=== PATIENT | female | born 1935 | race Caucasian/White ===

== ENCOUNTER 2018-06-20 18:32 | Inpatient (IN) ==
[~2018-06-20 18:32] MED LIST: Phenylephrine/NS 1000 MCG/10ML Syringe IV.PUSH ONE
[2018-06-20] MEDS ORDERED: Sod Chloride 0.9% Inj 1,000 ML IV.SIG ONE ×3 (18:54→20:14)
--- NOTE | 2018-06-20 19:11 | ED ---
HPI General Chief complaint: Altered Mental Status Stated complaint: Low blood sugar Time Seen by Provider: 06/20/18 18:37 History of Present Illness HPI narrative: 82-year-old female here for altered mental status. Patient is unable to give any information and all history is taken from the son at the bedside. Patient has history of alcoholic liver disease, son says she was fine until this afternoon she started feeling weak and not herself, she laid down and put a heat pad on her abdomen and had her son called 911. Patient complained about shortness of breath to her son, no chest pain, no head trauma or loss of consciousness. Patient drinks heavily, last drink was last night. Related Data Home Medications Medication Instructions Recorded Confirmed atenolol 25 mg PO DAILY 06/20/18 06/20/18 escitalopram oxalate 10 mg PO DAILY 06/20/18 06/20/18 esomeprazole magnesium [Nexium] 20 mg PO DAILY 06/20/18 06/20/18 hydrochlorothiazide 25 mg PO DAILY 06/20/18 06/20/18 lactulose 15 g PO TID 06/20/18 06/20/18 losartan 50 mg PO DAILY 06/20/18 06/20/18 magnesium oxide 400 mg PO BID 06/20/18 06/20/18 potassium chloride 20 meq PO DAILY 06/20/18 06/20/18 quetiapine 50 mg PO BID 06/20/18 06/20/18 vit [id number] [B 06/20/18 Complex] Allergies Allergy/AdvReac Type Severity Reaction Status Date / Time penicillin G Allergy Severe UNKNOWN Unverified 06/20/18 19:31 pseudoephedrine Allergy Severe UNKNOWN Unverified 06/20/18 19:31 Sulfa (Sulfonamide Allergy Severe UNKNOWN Unverified 06/20/18 19:31 Antibiotics) Review of Systems Except as stated in HPI: all other systems reviewed are negative PMFSH Social History Social History Smoking Status: Unknown if ever smoked How Often Do You Have a Drink Containing Alcohol: Unable to Obtain Recent Travel in [facility] within the Last 8 Weeks: No Recent Out of Country Travel within the Last 8 Weeks: No Exam Narrative Exam Narrative: GENERAL: Awake oriented to place but not time SKIN: Focused skin assessment warm/dry. HEAD: Atraumatic. Normocephalic. EYES: Scleral icterus bilaterally, pupils equal and round. ENT: No nasal bleeding or discharge. Mucous membranes pink and moist. NECK: Trachea midline. No JVD. CARDIOVASCULAR: Regular rate and rhythm. No murmur appreciated. RESPIRATORY: Decreased breath sounds right lower lung vital, accessory muscle use, low saturation on 3 L nasal cannula. GASTROINTESTINAL: Abdomen soft, non-tender, nondistended. Hepatic and splenic margins not palpable. MUSCULOSKELETAL: No obvious deformities. No clubbing. No cyanosis. No edema. NEUROLOGICAL: Awake and alert. No obvious cranial nerve deficits. Motor grossly within normal limits. Normal speech. PSYCHIATRIC: Appropriate mood and affect; insight and judgment normal. Procedures Hemaprompt Stool Procedural Steps Taken: specimen placed in appropriate test area Hemaprompt Stool Result: positive Course Initial Documented Vital Signs Temperature 97.3 F L 06/20/18 18:34 Pulse Rate 95 H 06/20/18 18:34 Respiratory Rate 24 06/20/18 18:34 Blood Pressure 112/70 06/20/18 18:34 Pulse Oximetry 96 06/20/18 18:34 Last Documented Vital Signs Temperature 94.6 F L 06/21/18 06:10 Pulse Rate 83 06/21/18 06:10 Respiratory Rate 16 06/21/18 06:10 Blood Pressure 96/40 L 06/21/18 06:10 Pulse Oximetry 94 L 06/21/18 06:09 Medical Decision Making [facility] Narrative Medical decision making narrative: 82-year-old female history of alcoholic liver disease here for altered mental status. Hemoccult is positive, patient having low saturation on 3 L nasal cannula, pending ABG and x-ray and labs. pt seen during shift change, pt is critically ill and resuscitation initiated immediately, labs ordered, portable CXR suspecious for free air, will sign out to next shift in critical condition, possible intubation if she didn't improve after initial resuscitation. Lab Data Result diagrams: 06/21/18 04:45 06/21/18 04:45 Lab Results 06/20/18 06/20/18 06/20/18 Range/Units 09:00 09:00 09:00 CBC w Diff Slide review pending WBC 10.6 (4.0-11.0) th/mm3 RBC 3.70 L (4.00-5.30) mil/mm3 Hgb 13.9 (11.6-15.3) gm/dL Hct 40.2 (35.0-46.0) % MCV 108.6 H (80.0-100.0) fL MCH 37.4 H (27.0-34.0) pg MCHC 34.4 (32.0-36.0) % RDW 14.7 (11.6-17.2) % Plt Count 225 (150-450) th/mm3 MPV 8.7 (7.0-11.0) fL Prelim Diff (Auto) Neut % (Auto) 77.1 H (16.0-70.0) % Lymph % (Auto) 14.5 (9.0-44.0) % [place] % (Auto) 8.1 H (0.0-8.0) % Eos % (Auto) 0.2 (0.0-4.0) % Baso % (Auto) 0.1 (0.0-2.0) % Neut # (Auto) 8.2 H (1.8-7.7) th/mm3 Lymph # (Auto) 1.5 (1.0-4.8) th/mm3 [place] # (Auto) 0.9 (0.0-0.9) th/mm3 Eos # (Auto) 0.0 (0.0-0.4) th/mm3 Baso # (Auto) 0.0 (0.0-0.2) th/mm3 WBC Differential Manual diff final Seg Neuts % (Manual) 21 (16-70) % Band Neuts % (Manual) 7 H (0-6) % Lymphocytes % (Manual) 15 (9-44) % Monocytes % (Manual) 9 H (0-8) % Metamyelocytes % (Man) 45 H (0-1) % Myelocytes % (Man) 3 H (0-0) % Abs Neuts (Manual) 8.1 H (1.8-7.7) th/mm3 Differential Comment . Toxic Granulation (None) Toxic Vacuolation Present H (None) Dohle Bodies (None) Platelet Estimate Normal (Normal) Platelet Morphology Normal (Normal) Ovalocytes 1+ H (None) [place] Cells 1+ H (None) PT 24.7 H (9.8-11.6) sec INR 2.4 Ratio APTT 42.7 H (24.3-30.1) sec Puncture Site Patient Temperature O2 Saturation (90-100) % ABG pH (7.380-7.420) ABG pCO2 (38-42) mmHg ABG pO2 (61-120) mmHg ABG HCO3 (22-26) mmol/L ABG O2 Content (12.0-20.0) Vol % ABG Base Excess (-2-2) mmol/L ABG Methemoglobin (0-2) % Agustin Test Hemoglobin (12.0-16.0) G/DL Carboxyhemoglobin (0-4) % O2 Delivery Device Liter Flow L/M Vent Setting Inspired O2 % Critical Value Sodium 127 L (136-145) meq/L Potassium 5.2 H (3.5-5.1) meq/L Chloride 92 L (98-107) meq/L Carbon Dioxide 7.4 L (21.0-32.0) meq/L Anion Gap 28 H (5-15) meq/L BUN 40 H (7-18) mg/dL Creatinine 2.90 H (0.50-1.00) mg/dL Estimated GFR 16 L (>89) mL/min POC Glucose (68-110) mg/dl Random Glucose 94 (74-106) mg/dL Lactic Acid (0.4-2.0) mmol/L Calcium 7.9 L (8.5-10.1) mg/dL Prot Corrected Calcium (8.5-10.1) mg/dL Phosphorus (2.5-4.9) mg/dL Magnesium (1.5-2.5) mg/dL Total Bilirubin 4.0 H (0.2-1.0) mg/dL Direct Bilirubin Indirect Bilirubin AST 1615 H (15-37) U/L ALT 490 H (10-53) U/L Alkaline Phosphatase 101 (45-117) U/L Ammonia (11-32) mcmol/L Total Creatine Kinase 1589 H (26-192) U/L CK-MB (CK-2) 38.1 H (0.5-3.6) ng/mL CK-MB (CK-2) % 2.4 (0.0-4.0) % Troponin I 0.11 H (0.02-0.05) ng/mL Total Protein 5.6 L (6.4-8.2) g/dL Albumin 2.4 L (3.4-5.0) g/dL Urine Color (Yellw/Straw) Urine Clarity (Clear) Urine pH (5.0-8.5) Ur Specific [place] (1.002-1.035) Urine Protein (Neg-Trace) mg/dL Urine Glucose (UA) (Negative) mg/dL Urine Ketones (Negative) mg/dL Urine Occult Blood (Negative) Urine Nitrate (Negative) Urine Bilirubin (Negative) Urine Urobilinogen (Less than 2) mg/dL Ur Leukocyte Esterase (Negative) Urine RBC (0-3) /hpf Urine WBC (0-5) /hpf Urine WBC Clumps (None) Urine Bacteria (None) /hpf Micro UA Comment Urine Culture Comments Nasal Screen MRSA (PCR) (Negative) Urine Opiates Screen (Neg) Ur Barbiturates Screen (Neg) Ur Amphetamines Screen (Neg) U Benzodiazepines Scrn (Neg) Urine Cocaine Screen (Neg) U Cannabinoids Screen (Neg) Serum Alcohol Less than 3 (0-5) mg/dL Blood Type Blood Type Recheck Antibody Screen MTS Gel Crossmatch Blood Bank Comment Bld Prod Order Comment 06/20/18 06/20/18 06/20/18 Range/Units 19:10 19:15 19:15 CBC w Diff WBC (4.0-11.0) th/mm3 RBC (4.00-5.30) mil/mm3 Hgb (11.6-15.3) gm/dL Hct (35.0-46.0) % MCV (80.0-100.0) fL MCH (27.0-34.0) pg MCHC (32.0-36.0) % RDW (11.6-17.2) % Plt Count (150-450) th/mm3 MPV (7.0-11.0) fL Prelim Diff (Auto) Neut % (Auto) (16.0-70.0) % Lymph % (Auto) (9.0-44.0) % [place] % (Auto) (0.0-8.0) % Eos % (Auto) (0.0-4.0) % Baso % (Auto) (0.0-2.0) % Neut # (Auto) (1.8-7.7) th/mm3 Lymph # (Auto) (1.0-4.8) th/mm3 [place] # (Auto) (0.0-0.9) th/mm3 Eos # (Auto) (0.0-0.4) th/mm3 Baso # (Auto) (0.0-0.2) th/mm3 WBC Differential Seg Neuts % (Manual) (16-70) % Band Neuts % (Manual) (0-6) % Lymphocytes % (Manual) (9-44) % Monocytes % (Manual) (0-8) % Metamyelocytes % (Man) (0-1) % Myelocytes % (Man) (0-0) % Abs Neuts (Manual) (1.8-7.7) th/mm3 Differential Comment Toxic Granulation (None) Toxic Vacuolation (None) Dohle Bodies (None) Platelet Estimate (Normal) Platelet Morphology (Normal) Ovalocytes (None) [place] Cells (None) PT (9.8-11.6) sec INR Ratio APTT (24.3-30.1) sec Puncture Site Left brachial Patient Temperature 98.6 O2 Saturation 95 (90-100) % ABG pH 6.96 L* (7.380-7.420) ABG pCO2 18 L* (38-42) mmHg ABG pO2 132 H (61-120) mmHg ABG HCO3 4 L* (22-26) mmol/L ABG O2 Content 18.5 (12.0-20.0) Vol % ABG Base Excess -25.7 L (-2-2) mmol/L ABG Methemoglobin 1.4 (0-2) % Agustin Test Y Hemoglobin 13.7 (12.0-16.0) G/DL Carboxyhemoglobin 0.3 (0-4) % O2 Delivery Device Nasal cannula Liter Flow 3.00 L/M Vent Setting Inspired O2 21 % Critical Value Yes Sodium (136-145) meq/L Potassium (3.5-5.1) meq/L Chloride (98-107) meq/L Carbon Dioxide (21.0-32.0) meq/L Anion Gap (5-15) meq/L BUN (7-18) mg/dL Creatinine (0.50-1.00) mg/dL Estimated GFR (>89) mL/min POC Glucose (68-110) mg/dl Random Glucose (74-106) mg/dL Lactic Acid 16.4 H* (0.4-2.0) mmol/L Calcium (8.5-10.1) mg/dL Prot Corrected Calcium (8.5-10.1) mg/dL Phosphorus (2.5-4.9) mg/dL Magnesium (1.5-2.5) mg/dL Total Bilirubin (0.2-1.0) mg/dL Direct Bilirubin Indirect Bilirubin AST (15-37) U/L ALT (10-53) U/L Alkaline Phosphatase (45-117) U/L Ammonia 61 H (11-32) mcmol/L Total Creatine Kinase (26-192) U/L CK-MB (CK-2) (0.5-3.6) ng/mL CK-MB (CK-2) % (0.0-4.0) % Troponin I (0.02-0.05) ng/mL Total Protein (6.4-8.2) g/dL Albumin (3.4-5.0) g/dL Urine Color (Yellw/Straw) Urine Clarity (Clear) Urine pH (5.0-8.5) Ur Specific [place] (1.002-1.035) Urine Protein (Neg-Trace) mg/dL Urine Glucose (UA) (Negative) mg/dL Urine Ketones (Negative) mg/dL Urine Occult Blood (Negative) Urine Nitrate (Negative) Urine Bilirubin (Negative) Urine Urobilinogen (Less than 2) mg/dL Ur Leukocyte Esterase (Negative) Urine RBC (0-3) /hpf Urine WBC (0-5) /hpf Urine WBC Clumps (None) Urine Bacteria (None) /hpf Micro UA Comment Urine Culture Comments Nasal Screen MRSA (PCR) (Negative) Urine Opiates Screen (Neg) Ur Barbiturates Screen (Neg) Ur Amphetamines Screen (Neg) U Benzodiazepines Scrn (Neg) Urine Cocaine Screen (Neg) U Cannabinoids Screen (Neg) Serum Alcohol (0-5) mg/dL Blood Type Blood Type Recheck Antibody Screen MTS Gel Crossmatch Blood Bank Comment Bld Prod Order Comment 06/20/18 06/20/18 06/20/18 Range/Units 20:15 20:15 22:45 CBC w Diff WBC (4.0-11.0) th/mm3 RBC (4.00-5.30) mil/mm3 Hgb (11.6-15.3) gm/dL Hct (35.0-46.0) % MCV (80.0-100.0) fL MCH (27.0-34.0) pg MCHC (32.0-36.0) % RDW (11.6-17.2) % Plt Count (150-450) th/mm3 MPV (7.0-11.0) fL Prelim Diff (Auto) Neut % (Auto) (16.0-70.0) % Lymph % (Auto) (9.0-44.0) % [place] % (Auto) (0.0-8.0) % Eos % (Auto) (0.0-4.0) % Baso % (Auto) (0.0-2.0) % Neut # (Auto) (1.8-7.7) th/mm3 Lymph # (Auto) (1.0-4.8) th/mm3 [place] # (Auto) (0.0-0.9) th/mm3 Eos # (Auto) (0.0-0.4) th/mm3 Baso # (Auto) (0.0-0.2) th/mm3 WBC Differential Seg Neuts % (Manual) (16-70) % Band Neuts % (Manual) (0-6) % Lymphocytes % (Manual) (9-44) % Monocytes % (Manual) (0-8) % Metamyelocytes % (Man) (0-1) % Myelocytes % (Man) (0-0) % Abs Neuts (Manual) (1.8-7.7) th/mm3 Differential Comment Toxic Granulation (None) Toxic Vacuolation (None) Dohle Bodies (None) Platelet Estimate (Normal) Platelet Morphology (Normal) Ovalocytes (None) [place] Cells (None) PT (9.8-11.6) sec INR Ratio APTT (24.3-30.1) sec Puncture Site Art line Patient Temperature 98.6 O2 Saturation 98 (90-100) % ABG pH 7.09 L* (7.380-7.420) ABG pCO2 30 L (38-42) mmHg ABG pO2 472 H (61-120) mmHg ABG HCO3 9 L* (22-26) mmol/L ABG O2 Content 16.4 (12.0-20.0) Vol % ABG Base Excess -19.2 L (-2-2) mmol/L ABG Methemoglobin 1.3 (0-2) % Agustin Test Hemoglobin 11.0 L (12.0-16.0) G/DL Carboxyhemoglobin 0.1 (0-4) % O2 Delivery Device Ventilator Liter Flow L/M Vent Setting Or gas Inspired O2 100 % Critical Value Yes Sodium (136-145) meq/L Potassium (3.5-5.1) meq/L Chloride (98-107) meq/L Carbon Dioxide (21.0-32.0) meq/L Anion Gap (5-15) meq/L BUN (7-18) mg/dL Creatinine (0.50-1.00) mg/dL Estimated GFR (>89) mL/min POC Glucose (68-110) mg/dl Random Glucose (74-106) mg/dL Lactic Acid (0.4-2.0) mmol/L Calcium (8.5-10.1) mg/dL Prot Corrected Calcium (8.5-10.1) mg/dL Phosphorus (2.5-4.9) mg/dL Magnesium (1.5-2.5) mg/dL Total Bilirubin (0.2-1.0) mg/dL Direct Bilirubin Indirect Bilirubin AST (15-37) U/L ALT (10-53) U/L Alkaline Phosphatase (45-117) U/L Ammonia (11-32) mcmol/L Total Creatine Kinase (26-192) U/L CK-MB (CK-2) (0.5-3.6) ng/mL CK-MB (CK-2) % (0.0-4.0) % Troponin I (0.02-0.05) ng/mL Total Protein (6.4-8.2) g/dL Albumin (3.4-5.0) g/dL Urine Color Yellow (Yellw/Straw) Urine Clarity Clear (Clear) Urine pH 5.5 (5.0-8.5) Ur Specific [place] 1.010 (1.002-1.035) Urine Protein Negative (Neg-Trace) mg/dL Urine Glucose (UA) Negative (Negative) mg/dL Urine Ketones Trace H (Negative) mg/dL Urine Occult Blood Moderate H (Negative) Urine Nitrate Negative (Negative) Urine Bilirubin Negative (Negative) Urine Urobilinogen 0.2 (Less than 2) mg/dL Ur Leukocyte Esterase Moderate H (Negative) Urine RBC 4-15 H (0-3) /hpf Urine WBC 9-20 H (0-5) /hpf Urine WBC Clumps Few H (None) Urine Bacteria Moderate H (None) /hpf Micro UA Comment Cath-culture ind Urine Culture Comments Cath-cult indicated Nasal Screen MRSA (PCR) (Negative) Urine Opiates Screen Neg (Neg) Ur Barbiturates Screen Neg (Neg) Ur Amphetamines Screen Neg (Neg) U Benzodiazepines Scrn Neg (Neg) Urine Cocaine Screen Neg (Neg) U Cannabinoids Screen Neg (Neg) Serum Alcohol (0-5) mg/dL Blood Type Blood Type Recheck Antibody Screen MTS Gel Crossmatch Blood Bank Comment Bld Prod Order Comment 06/21/18 06/21/18 06/21/18 Range/Units 00:12 00:12 00:15 CBC w Diff WBC 6.8 (4.0-11.0) th/mm3 RBC 2.30 L (4.00-5.30) mil/mm3 Hgb 8.6 L D (11.6-15.3) gm/dL Hct 24.8 L (35.0-46.0) % MCV 108.0 H (80.0-100.0) fL MCH 37.3 H (27.0-34.0) pg MCHC 34.6 (32.0-36.0) % RDW 14.1 (11.6-17.2) % Plt Count 130 L D (150-450) th/mm3 MPV 8.5 (7.0-11.0) fL Prelim Diff (Auto) Neut % (Auto) (16.0-70.0) % Lymph % (Auto) (9.0-44.0) % [place] % (Auto) (0.0-8.0) % Eos % (Auto) (0.0-4.0) % Baso % (Auto) (0.0-2.0) % Neut # (Auto) (1.8-7.7) th/mm3 Lymph # (Auto) (1.0-4.8) th/mm3 [place] # (Auto) (0.0-0.9) th/mm3 Eos # (Auto) (0.0-0.4) th/mm3 Baso # (Auto) (0.0-0.2) th/mm3 WBC Differential Seg Neuts % (Manual) (16-70) % Band Neuts % (Manual) (0-6) % Lymphocytes % (Manual) (9-44) % Monocytes % (Manual) (0-8) % Metamyelocytes % (Man) (0-1) % Myelocytes % (Man) (0-0) % Abs Neuts (Manual) (1.8-7.7) th/mm3 Differential Comment Toxic Granulation (None) Toxic Vacuolation (None) Dohle Bodies (None) Platelet Estimate (Normal) Platelet Morphology (Normal) Ovalocytes (None) [place] Cells (None) PT (9.8-11.6) sec INR Ratio APTT (24.3-30.1) sec Puncture Site Patient Temperature O2 Saturation (90-100) % ABG pH (7.380-7.420) ABG pCO2 (38-42) mmHg ABG pO2 (61-120) mmHg ABG HCO3 (22-26) mmol/L ABG O2 Content (12.0-20.0) Vol % ABG Base Excess (-2-2) mmol/L ABG Methemoglobin (0-2) % Agustin Test Hemoglobin (12.0-16.0) G/DL Carboxyhemoglobin (0-4) % O2 Delivery Device Liter Flow L/M Vent Setting Inspired O2 % Critical Value Sodium Cancelled (136-145) meq/L Potassium Cancelled (3.5-5.1) meq/L Chloride Cancelled (98-107) meq/L Carbon Dioxide Cancelled (21.0-32.0) meq/L Anion Gap Cancelled (5-15) meq/L BUN Cancelled (7-18) mg/dL Creatinine Cancelled (0.50-1.00) mg/dL Estimated GFR Cancelled (>89) mL/min POC Glucose (68-110) mg/dl Random Glucose Cancelled (74-106) mg/dL Lactic Acid (0.4-2.0) mmol/L Calcium Cancelled (8.5-10.1) mg/dL Prot Corrected Calcium (8.5-10.1) mg/dL Phosphorus (2.5-4.9) mg/dL Magnesium (1.5-2.5) mg/dL Total Bilirubin Cancelled (0.2-1.0) mg/dL Direct Bilirubin Cancelled Indirect Bilirubin Cancelled AST Cancelled (15-37) U/L ALT Cancelled (10-53) U/L Alkaline Phosphatase Cancelled (45-117) U/L Ammonia (11-32) mcmol/L Total Creatine Kinase Cancelled (26-192) U/L CK-MB (CK-2) (0.5-3.6) ng/mL CK-MB (CK-2) % (0.0-4.0) % Troponin I (0.02-0.05) ng/mL Total Protein Cancelled (6.4-8.2) g/dL Albumin Cancelled (3.4-5.0) g/dL Urine Color (Yellw/Straw) Urine Clarity (Clear) Urine pH (5.0-8.5) Ur Specific [place] (1.002-1.035) Urine Protein (Neg-Trace) mg/dL Urine Glucose (UA) (Negative) mg/dL Urine Ketones (Negative) mg/dL Urine Occult Blood (Negative) Urine Nitrate (Negative) Urine Bilirubin (Negative) Urine Urobilinogen (Less than 2) mg/dL Ur Leukocyte Esterase (Negative) Urine RBC (0-3) /hpf Urine WBC (0-5) /hpf Urine WBC Clumps (None) Urine Bacteria (None) /hpf Micro UA Comment Urine Culture Comments Nasal Screen MRSA (PCR) [place] detected (Negative) Urine Opiates Screen (Neg) Ur Barbiturates Screen (Neg) Ur Amphetamines Screen (Neg) U Benzodiazepines Scrn (Neg) Urine Cocaine Screen (Neg) U Cannabinoids Screen (Neg) Serum Alcohol (0-5) mg/dL Blood Type Blood Type Recheck Antibody Screen MTS Gel Crossmatch Blood Bank Comment Bld Prod Order Comment 06/21/18 06/21/18 06/21/18 Range/Units 00:30 00:30 00:30 CBC w Diff WBC (4.0-11.0) th/mm3 RBC (4.00-5.30) mil/mm3 Hgb (11.6-15.3) gm/dL Hct (35.0-46.0) % MCV (80.0-100.0) fL MCH (27.0-34.0) pg MCHC (32.0-36.0) % RDW (11.6-17.2) % Plt Count (150-450) th/mm3 MPV (7.0-11.0) fL Prelim Diff (Auto) Neut % (Auto) (16.0-70.0) % Lymph % (Auto) (9.0-44.0) % [place] % (Auto) (0.0-8.0) % Eos % (Auto) (0.0-4.0) % Baso % (Auto) (0.0-2.0) % Neut # (Auto) (1.8-7.7) th/mm3 Lymph # (Auto) (1.0-4.8) th/mm3 [place] # (Auto) (0.0-0.9) th/mm3 Eos # (Auto) (0.0-0.4) th/mm3 Baso # (Auto) (0.0-0.2) th/mm3 WBC Differential Seg Neuts % (Manual) (16-70) % Band Neuts % (Manual) (0-6) % Lymphocytes % (Manual) (9-44) % Monocytes % (Manual) (0-8) % Metamyelocytes % (Man) (0-1) % Myelocytes % (Man) (0-0) % Abs Neuts (Manual) (1.8-7.7) th/mm3 Differential Comment Toxic Granulation (None) Toxic Vacuolation (None) Dohle Bodies (None) Platelet Estimate (Normal) Platelet Morphology (Normal) Ovalocytes (None) [place] Cells (None) PT (9.8-11.6) sec INR Ratio APTT (24.3-30.1) sec Puncture Site Art line Patient Temperature 98.6 O2 Saturation 98 (90-100) % ABG pH 7.40 (7.380-7.420) ABG pCO2 17 L* (38-42) mmHg ABG pO2 472 H (61-120) mmHg ABG HCO3 10 L* (22-26) mmol/L ABG O2 Content 12.6 (12.0-20.0) Vol % ABG Base Excess -14.0 L (-2-2) mmol/L ABG Methemoglobin 1.0 (0-2) % Agustin Test Hemoglobin 8.2 L (12.0-16.0) G/DL Carboxyhemoglobin 0.9 (0-4) % O2 Delivery Device Ventilator Liter Flow L/M Vent Setting 20/500/it1.0 Inspired O2 100 % Critical Value Yes Sodium (136-145) meq/L Potassium (3.5-5.1) meq/L Chloride (98-107) meq/L Carbon Dioxide (21.0-32.0) meq/L Anion Gap (5-15) meq/L BUN (7-18) mg/dL Creatinine (0.50-1.00) mg/dL Estimated GFR (>89) mL/min POC Glucose (68-110) mg/dl Random Glucose (74-106) mg/dL Lactic Acid 14.9 H* (0.4-2.0) mmol/L Calcium (8.5-10.1) mg/dL Prot Corrected Calcium (8.5-10.1) mg/dL Phosphorus (2.5-4.9) mg/dL Magnesium (1.5-2.5) mg/dL Total Bilirubin (0.2-1.0) mg/dL Direct Bilirubin Indirect Bilirubin AST (15-37) U/L ALT (10-53) U/L Alkaline Phosphatase (45-117) U/L Ammonia (11-32) mcmol/L Total Creatine Kinase (26-192) U/L CK-MB (CK-2) (0.5-3.6) ng/mL CK-MB (CK-2) % (0.0-4.0) % Troponin I (0.02-0.05) ng/mL Total Protein (6.4-8.2) g/dL Albumin (3.4-5.0) g/dL Urine Color (Yellw/Straw) Urine Clarity (Clear) Urine pH (5.0-8.5) Ur Specific [place] (1.002-1.035) Urine Protein (Neg-Trace) mg/dL Urine Glucose (UA) (Negative) mg/dL Urine Ketones (Negative) mg/dL Urine Occult Blood (Negative) Urine Nitrate (Negative) Urine Bilirubin (Negative) Urine Urobilinogen (Less than 2) mg/dL Ur Leukocyte Esterase (Negative) Urine RBC (0-3) /hpf Urine WBC (0-5) /hpf Urine WBC Clumps (None) Urine Bacteria (None) /hpf Micro UA Comment Urine Culture Comments Nasal Screen MRSA (PCR) (Negative) Urine Opiates Screen (Neg) Ur Barbiturates Screen (Neg) Ur Amphetamines Screen (Neg) U Benzodiazepines Scrn (Neg) Urine Cocaine Screen (Neg) U Cannabinoids Screen (Neg) Serum Alcohol (0-5) mg/dL Blood Type B Positive Blood Type Recheck Antibody Screen Negative MTS Gel Crossmatch Blood Bank Comment Bld Prod Order Comment 06/21/18 06/21/18 06/21/18 Range/Units 01:33 01:50 02:26 CBC w Diff WBC (4.0-11.0) th/mm3 RBC (4.00-5.30) mil/mm3 Hgb (11.6-15.3) gm/dL Hct (35.0-46.0) % MCV (80.0-100.0) fL MCH (27.0-34.0) pg MCHC (32.0-36.0) % RDW (11.6-17.2) % Plt Count (150-450) th/mm3 MPV (7.0-11.0) fL Prelim Diff (Auto) Neut % (Auto) (16.0-70.0) % Lymph % (Auto) (9.0-44.0) % [place] % (Auto) (0.0-8.0) % Eos % (Auto) (0.0-4.0) % Baso % (Auto) (0.0-2.0) % Neut # (Auto) (1.8-7.7) th/mm3 Lymph # (Auto) (1.0-4.8) th/mm3 [place] # (Auto) (0.0-0.9) th/mm3 Eos # (Auto) (0.0-0.4) th/mm3 Baso # (Auto) (0.0-0.2) th/mm3 WBC Differential Seg Neuts % (Manual) (16-70) % Band Neuts % (Manual) (0-6) % Lymphocytes % (Manual) (9-44) % Monocytes % (Manual) (0-8) % Metamyelocytes % (Man) (0-1) % Myelocytes % (Man) (0-0) % Abs Neuts (Manual) (1.8-7.7) th/mm3 Differential Comment Toxic Granulation (None) Toxic Vacuolation (None) Dohle Bodies (None) Platelet Estimate (Normal) Platelet Morphology (Normal) Ovalocytes (None) [place] Cells (None) PT (9.8-11.6) sec INR Ratio APTT (24.3-30.1) sec Puncture Site Patient Temperature O2 Saturation (90-100) % ABG pH (7.380-7.420) ABG pCO2 (38-42) mmHg ABG pO2 (61-120) mmHg ABG HCO3 (22-26) mmol/L ABG O2 Content (12.0-20.0) Vol % ABG Base Excess (-2-2) mmol/L ABG Methemoglobin (0-2) % [place] Test Hemoglobin (12.0-16.0) G/DL Carboxyhemoglobin (0-4) % O2 Delivery Device Liter Flow L/M Vent Setting Inspired O2 % Critical Value Sodium (136-145) meq/L Potassium (3.5-5.1) meq/L Chloride (98-107) meq/L Carbon Dioxide (21.0-32.0) meq/L Anion Gap (5-15) meq/L BUN (7-18) mg/dL Creatinine (0.50-1.00) mg/dL Estimated GFR (>89) mL/min POC Glucose 38 L* 479 H* 295 H (68-110) mg/dl Random Glucose (74-106) mg/dL Lactic Acid (0.4-2.0) mmol/L Calcium (8.5-10.1) mg/dL Prot Corrected Calcium (8.5-10.1) mg/dL Phosphorus (2.5-4.9) mg/dL Magnesium (1.5-2.5) mg/dL Total Bilirubin (0.2-1.0) mg/dL Direct Bilirubin Indirect Bilirubin AST (15-37) U/L ALT (10-53) U/L Alkaline Phosphatase (45-117) U/L Ammonia (11-32) mcmol/L Total Creatine Kinase (26-192) U/L CK-MB (CK-2) (0.5-3.6) ng/mL CK-MB (CK-2) % (0.0-4.0) % Troponin I (0.02-0.05) ng/mL Total Protein (6.4-8.2) g/dL Albumin (3.4-5.0) g/dL Urine Color (Yellw/Straw) Urine Clarity (Clear) Urine pH (5.0-8.5) Ur Specific [place] (1.002-1.035) Urine Protein (Neg-Trace) mg/dL Urine Glucose (UA) (Negative) mg/dL Urine Ketones (Negative) mg/dL Urine Occult Blood (Negative) Urine Nitrate (Negative) Urine Bilirubin (Negative) Urine Urobilinogen (Less than 2) mg/dL Ur Leukocyte Esterase (Negative) Urine RBC (0-3) /hpf Urine WBC (0-5) /hpf Urine WBC Clumps (None) Urine Bacteria (None) /hpf Micro UA Comment Urine Culture Comments Nasal Screen MRSA (PCR) (Negative) Urine Opiates Screen (Neg) Ur Barbiturates Screen (Neg) Ur Amphetamines Screen (Neg) U Benzodiazepines Scrn (Neg) Urine Cocaine Screen (Neg) U Cannabinoids Screen (Neg) Serum Alcohol (0-5) mg/dL Blood Type Blood Type Recheck Antibody Screen MTS Gel Crossmatch Blood Bank Comment Bld Prod Order Comment 06/21/18 06/21/18 06/21/18 Range/Units 03:05 03:05 03:25 CBC w Diff WBC (4.0-11.0) th/mm3 RBC (4.00-5.30) mil/mm3 Hgb 5.6 L* D (11.6-15.3) gm/dL Hct 17.1 L* (35.0-46.0) % MCV (80.0-100.0) fL MCH (27.0-34.0) pg MCHC (32.0-36.0) % RDW (11.6-17.2) % Plt Count (150-450) th/mm3 MPV (7.0-11.0) fL Prelim Diff (Auto) Neut % (Auto) (16.0-70.0) % Lymph % (Auto) (9.0-44.0) % [place] % (Auto) (0.0-8.0) % Eos % (Auto) (0.0-4.0) % Baso % (Auto) (0.0-2.0) % Neut # (Auto) (1.8-7.7) th/mm3 Lymph # (Auto) (1.0-4.8) th/mm3 [place] # (Auto) (0.0-0.9) th/mm3 Eos # (Auto) (0.0-0.4) th/mm3 Baso # (Auto) (0.0-0.2) th/mm3 WBC Differential Seg Neuts % (Manual) (16-70) % Band Neuts % (Manual) (0-6) % Lymphocytes % (Manual) (9-44) % Monocytes % (Manual) (0-8) % Metamyelocytes % (Man) (0-1) % Myelocytes % (Man) (0-0) % Abs Neuts (Manual) (1.8-7.7) th/mm3 Differential Comment Toxic Granulation (None) Toxic Vacuolation (None) Dohle Bodies (None) Platelet Estimate (Normal) Platelet Morphology (Normal) Ovalocytes (None) Rafiq Cells (None) PT (9.8-11.6) sec INR Ratio APTT (24.3-30.1) sec Puncture Site Patient Temperature O2 Saturation (90-100) % ABG pH (7.380-7.420) ABG pCO2 (38-42) mmHg ABG pO2 (61-120) mmHg ABG HCO3 (22-26) mmol/L ABG O2 Content (12.0-20.0) Vol % ABG Base Excess (-2-2) mmol/L ABG Methemoglobin (0-2) % Agustin Test Hemoglobin (12.0-16.0) G/DL Carboxyhemoglobin (0-4) % O2 Delivery Device Liter Flow L/M Vent Setting Inspired O2 % Critical Value Sodium (136-145) meq/L Potassium (3.5-5.1) meq/L Chloride (98-107) meq/L Carbon Dioxide (21.0-32.0) meq/L Anion Gap (5-15) meq/L BUN (7-18) mg/dL Creatinine (0.50-1.00) mg/dL Estimated GFR (>89) mL/min POC Glucose (68-110) mg/dl Random Glucose (74-106) mg/dL Lactic Acid (0.4-2.0) mmol/L Calcium (8.5-10.1) mg/dL Prot Corrected Calcium (8.5-10.1) mg/dL Phosphorus (2.5-4.9) mg/dL Magnesium (1.5-2.5) mg/dL Total Bilirubin (0.2-1.0) mg/dL Direct Bilirubin Indirect Bilirubin AST (15-37) U/L ALT (10-53) U/L Alkaline Phosphatase (45-117) U/L Ammonia (11-32) mcmol/L Total Creatine Kinase (26-192) U/L CK-MB (CK-2) (0.5-3.6) ng/mL CK-MB (CK-2) % (0.0-4.0) % Troponin I (0.02-0.05) ng/mL Total Protein (6.4-8.2) g/dL Albumin (3.4-5.0) g/dL Urine Color (Yellw/Straw) Urine Clarity (Clear) Urine pH (5.0-8.5) Ur Specific [place] (1.002-1.035) Urine Protein (Neg-Trace) mg/dL Urine Glucose (UA) (Negative) mg/dL Urine Ketones (Negative) mg/dL Urine Occult Blood (Negative) Urine Nitrate (Negative) Urine Bilirubin (Negative) Urine Urobilinogen (Less than 2) mg/dL Ur Leukocyte Esterase (Negative) Urine RBC (0-3) /hpf Urine WBC (0-5) /hpf Urine WBC Clumps (None) Urine Bacteria (None) /hpf Micro UA Comment Urine Culture Comments Nasal Screen MRSA (PCR) (Negative) Urine Opiates Screen (Neg) Ur Barbiturates Screen (Neg) Ur Amphetamines Screen (Neg) U Benzodiazepines Scrn (Neg) Urine Cocaine Screen (Neg) U Cannabinoids Screen (Neg) Serum Alcohol (0-5) mg/dL Blood Type Blood Type Recheck Antibody Screen MTS Gel Crossmatch See Detail See Detail Blood Bank Comment Bld Prod Order Comment 06/21/18 06/21/18 06/21/18 Range/Units 04:34 04:34 04:45 CBC w Diff WBC 4.6 (4.0-11.0) th/mm3 RBC 2.99 L (4.00-5.30) mil/mm3 Hgb 9.2 L D (11.6-15.3) gm/dL Hct 29.0 L (35.0-46.0) % MCV 96.8 D (80.0-100.0) fL MCH 30.9 (27.0-34.0) pg MCHC 31.9 L (32.0-36.0) % RDW 17.5 H D (11.6-17.2) % Plt Count 43 L D (150-450) th/mm3 MPV 8.7 (7.0-11.0) fL Prelim Diff (Auto) Manual diff required Neut % (Auto) (16.0-70.0) % Lymph % (Auto) (9.0-44.0) % [place] % (Auto) (0.0-8.0) % Eos % (Auto) (0.0-4.0) % Baso % (Auto) (0.0-2.0) % Neut # (Auto) (1.8-7.7) th/mm3 Lymph # (Auto) (1.0-4.8) th/mm3 [place] # (Auto) (0.0-0.9) th/mm3 Eos # (Auto) (0.0-0.4) th/mm3 Baso # (Auto) (0.0-0.2) th/mm3 WBC Differential Manual diff final Seg Neuts % (Manual) 56 (16-70) % Band Neuts % (Manual) 37 H (0-6) % Lymphocytes % (Manual) 3 L (9-44) % Monocytes % (Manual) (0-8) % Metamyelocytes % (Man) 4 H (0-1) % Myelocytes % (Man) (0-0) % Abs Neuts (Manual) 4.5 (1.8-7.7) th/mm3 Differential Comment . Toxic Granulation 1+ H (None) Toxic Vacuolation Present H (None) Dohle Bodies Present H (None) Platelet Estimate Low L (Normal) Platelet Morphology Normal (Normal) Ovalocytes (None) [place] Cells 1+ H (None) PT (9.8-11.6) sec INR Ratio APTT (24.3-30.1) sec Puncture Site Patient Temperature O2 Saturation (90-100) % ABG pH (7.380-7.420) ABG pCO2 (38-42) mmHg ABG pO2 (61-120) mmHg ABG HCO3 (22-26) mmol/L ABG O2 Content (12.0-20.0) Vol % ABG Base Excess (-2-2) mmol/L ABG Methemoglobin (0-2) % Agustin Test Hemoglobin (12.0-16.0) G/DL Carboxyhemoglobin (0-4) % O2 Delivery Device Liter Flow L/M Vent Setting Inspired O2 % Critical Value Sodium (136-145) meq/L Potassium (3.5-5.1) meq/L Chloride (98-107) meq/L Carbon Dioxide (21.0-32.0) meq/L Anion Gap (5-15) meq/L BUN (7-18) mg/dL Creatinine (0.50-1.00) mg/dL Estimated GFR (>89) mL/min POC Glucose (68-110) mg/dl Random Glucose (74-106) mg/dL Lactic Acid (0.4-2.0) mmol/L Calcium (8.5-10.1) mg/dL Prot Corrected Calcium (8.5-10.1) mg/dL Phosphorus (2.5-4.9) mg/dL Magnesium (1.5-2.5) mg/dL Total Bilirubin (0.2-1.0) mg/dL Direct Bilirubin Indirect Bilirubin AST (15-37) U/L ALT (10-53) U/L Alkaline Phosphatase (45-117) U/L Ammonia (11-32) mcmol/L Total Creatine Kinase (26-192) U/L CK-MB (CK-2) (0.5-3.6) ng/mL CK-MB (CK-2) % (0.0-4.0) % Troponin I (0.02-0.05) ng/mL Total Protein (6.4-8.2) g/dL Albumin (3.4-5.0) g/dL Urine Color (Yellw/Straw) Urine Clarity (Clear) Urine pH (5.0-8.5) Ur Specific [place] (1.002-1.035) Urine Protein (Neg-Trace) mg/dL Urine Glucose (UA) (Negative) mg/dL Urine Ketones (Negative) mg/dL Urine Occult Blood (Negative) Urine Nitrate (Negative) Urine Bilirubin (Negative) Urine Urobilinogen (Less than 2) mg/dL Ur Leukocyte Esterase (Negative) Urine RBC (0-3) /hpf Urine WBC (0-5) /hpf Urine WBC Clumps (None) Urine Bacteria (None) /hpf Micro UA Comment Urine Culture Comments Nasal Screen MRSA (PCR) (Negative) Urine Opiates Screen (Neg) Ur Barbiturates Screen (Neg) Ur Amphetamines Screen (Neg) U Benzodiazepines Scrn (Neg) Urine Cocaine Screen (Neg) U Cannabinoids Screen (Neg) Serum Alcohol (0-5) mg/dL Blood Type Blood Type Recheck Antibody Screen MTS Gel Crossmatch See Detail Blood Bank Comment Bld Prod Order Comment 06/21/18 06/21/18 06/21/18 Range/Units 04:45 04:45 04:45 CBC w Diff WBC (4.0-11.0) th/mm3 RBC (4.00-5.30) mil/mm3 Hgb (11.6-15.3) gm/dL Hct (35.0-46.0) % MCV (80.0-100.0) fL MCH (27.0-34.0) pg MCHC (32.0-36.0) % RDW (11.6-17.2) % Plt Count (150-450) th/mm3 MPV (7.0-11.0) fL Prelim Diff (Auto) Neut % (Auto) (16.0-70.0) % Lymph % (Auto) (9.0-44.0) % [place] % (Auto) (0.0-8.0) % Eos % (Auto) (0.0-4.0) % Baso % (Auto) (0.0-2.0) % Neut # (Auto) (1.8-7.7) th/mm3 Lymph # (Auto) (1.0-4.8) th/mm3 [place] # (Auto) (0.0-0.9) th/mm3 Eos # (Auto) (0.0-0.4) th/mm3 Baso # (Auto) (0.0-0.2) th/mm3 WBC Differential Seg Neuts % (Manual) (16-70) % Band Neuts % (Manual) (0-6) % Lymphocytes % (Manual) (9-44) % Monocytes % (Manual) (0-8) % Metamyelocytes % (Man) (0-1) % Myelocytes % (Man) (0-0) % Abs Neuts (Manual) (1.8-7.7) th/mm3 Differential Comment Toxic Granulation (None) Toxic Vacuolation (None) Dohle Bodies (None) Platelet Estimate (Normal) Platelet Morphology (Normal) Ovalocytes (None) [place] Cells (None) PT 44.8 H D (9.8-11.6) sec INR 4.5 Ratio APTT 180.9 H* D (24.3-30.1) sec Puncture Site Patient Temperature O2 Saturation (90-100) % ABG pH (7.380-7.420) ABG pCO2 (38-42) mmHg ABG pO2 (61-120) mmHg ABG HCO3 (22-26) mmol/L ABG O2 Content (12.0-20.0) Vol % ABG Base Excess (-2-2) mmol/L ABG Methemoglobin (0-2) % Agustin Test Hemoglobin (12.0-16.0) G/DL Carboxyhemoglobin (0-4) % O2 Delivery Device Liter Flow L/M Vent Setting Inspired O2 % Critical Value Sodium 143 D (136-145) meq/L Potassium 5.6 H (3.5-5.1) meq/L Chloride 111 H D (98-107) meq/L Carbon Dioxide 7.5 L (21.0-32.0) meq/L Anion Gap 25 H (5-15) meq/L BUN 29 H (7-18) mg/dL Creatinine 1.89 H (0.50-1.00) mg/dL Estimated GFR 26 L (>89) mL/min POC Glucose (68-110) mg/dl Random Glucose 202 H D (74-106) mg/dL Lactic Acid 15.8 H* (0.4-2.0) mmol/L Calcium Less than 5.0 L* D (8.5-10.1) mg/dL Prot Corrected Calcium 7.8 L (8.5-10.1) mg/dL Phosphorus 9.7 H (2.5-4.9) mg/dL Magnesium 1.5 (1.5-2.5) mg/dL Total Bilirubin 1.2 H (0.2-1.0) mg/dL Direct Bilirubin Indirect Bilirubin AST 3722 H (15-37) U/L ALT 694 H (10-53) U/L Alkaline Phosphatase 31 L (45-117) U/L Ammonia (11-32) mcmol/L Total Creatine Kinase 1876 H (26-192) U/L CK-MB (CK-2) 43.0 H (0.5-3.6) ng/mL CK-MB (CK-2) % 2.3 (0.0-4.0) % Troponin I (0.02-0.05) ng/mL Total Protein 1.4 L D (6.4-8.2) g/dL Albumin 0.6 L D (3.4-5.0) g/dL Urine Color (Yellw/Straw) Urine Clarity (Clear) Urine pH (5.0-8.5) Ur Specific [place] (1.002-1.035) Urine Protein (Neg-Trace) mg/dL Urine Glucose (UA) (Negative) mg/dL Urine Ketones (Negative) mg/dL Urine Occult Blood (Negative) Urine Nitrate (Negative) Urine Bilirubin (Negative) Urine Urobilinogen (Less than 2) mg/dL Ur Leukocyte Esterase (Negative) Urine RBC (0-3) /hpf Urine WBC (0-5) /hpf Urine WBC Clumps (None) Urine Bacteria (None) /hpf Micro UA Comment Urine Culture Comments Nasal Screen MRSA (PCR) (Negative) Urine Opiates Screen (Neg) Ur Barbiturates Screen (Neg) Ur Amphetamines Screen (Neg) U Benzodiazepines Scrn (Neg) Urine Cocaine Screen (Neg) U Cannabinoids Screen (Neg) Serum Alcohol (0-5) mg/dL Blood Type Blood Type Recheck Antibody Screen MTS Gel Crossmatch Blood Bank Comment Bld Prod Order Comment 06/21/18 06/21/18 06/21/18 Range/Units 05:40 05:56 05:57 CBC w Diff WBC (4.0-11.0) th/mm3 RBC (4.00-5.30) mil/mm3 Hgb (11.6-15.3) gm/dL Hct (35.0-46.0) % MCV (80.0-100.0) fL MCH (27.0-34.0) pg MCHC (32.0-36.0) % RDW (11.6-17.2) % Plt Count (150-450) th/mm3 MPV (7.0-11.0) fL Prelim Diff (Auto) Neut % (Auto) (16.0-70.0) % Lymph % (Auto) (9.0-44.0) % [place] % (Auto) (0.0-8.0) % Eos % (Auto) (0.0-4.0) % Baso % (Auto) (0.0-2.0) % Neut # (Auto) (1.8-7.7) th/mm3 Lymph # (Auto) (1.0-4.8) th/mm3 [place] # (Auto) (0.0-0.9) th/mm3 Eos # (Auto) (0.0-0.4) th/mm3 Baso # (Auto) (0.0-0.2) th/mm3 WBC Differential Seg Neuts % (Manual) (16-70) % Band Neuts % (Manual) (0-6) % Lymphocytes % (Manual) (9-44) % Monocytes % (Manual) (0-8) % Metamyelocytes % (Man) (0-1) % Myelocytes % (Man) (0-0) % Abs Neuts (Manual) (1.8-7.7) th/mm3 Differential Comment Toxic Granulation (None) Toxic Vacuolation (None) Dohle Bodies (None) Platelet Estimate (Normal) Platelet Morphology (Normal) Ovalocytes (None) [place] Cells (None) PT (9.8-11.6) sec INR Ratio APTT (24.3-30.1) sec Puncture Site Art line Patient Temperature 98.6 O2 Saturation 97 (90-100) % ABG pH 7.03 L* (7.380-7.420) ABG pCO2 22 L* (38-42) mmHg ABG pO2 247 H (61-120) mmHg ABG HCO3 6 L* (22-26) mmol/L ABG O2 Content 13.6 (12.0-20.0) Vol % ABG Base Excess -23.2 L (-2-2) mmol/L ABG Methemoglobin 1.2 (0-2) % Agustin Test Hemoglobin 9.5 L (12.0-16.0) G/DL Carboxyhemoglobin 1.0 (0-4) % O2 Delivery Device Ventilator Liter Flow L/M Vent Setting 16/500/1.0/peep 5 Inspired O2 50 % Critical Value Yes Sodium (136-145) meq/L Potassium (3.5-5.1) meq/L Chloride (98-107) meq/L Carbon Dioxide (21.0-32.0) meq/L Anion Gap (5-15) meq/L BUN (7-18) mg/dL Creatinine (0.50-1.00) mg/dL Estimated GFR (>89) mL/min POC Glucose (68-110) mg/dl Random Glucose (74-106) mg/dL Lactic Acid (0.4-2.0) mmol/L Calcium (8.5-10.1) mg/dL Prot Corrected Calcium (8.5-10.1) mg/dL Phosphorus (2.5-4.9) mg/dL Magnesium (1.5-2.5) mg/dL Total Bilirubin (0.2-1.0) mg/dL Direct Bilirubin Indirect Bilirubin AST (15-37) U/L ALT (10-53) U/L Alkaline Phosphatase (45-117) U/L Ammonia (11-32) mcmol/L Total Creatine Kinase (26-192) U/L CK-MB (CK-2) (0.5-3.6) ng/mL CK-MB (CK-2) % (0.0-4.0) % Troponin I (0.02-0.05) ng/mL Total Protein (6.4-8.2) g/dL Albumin (3.4-5.0) g/dL Urine Color (Yellw/Straw) Urine Clarity (Clear) Urine pH (5.0-8.5) Ur Specific [place] (1.002-1.035) Urine Protein (Neg-Trace) mg/dL Urine Glucose (UA) (Negative) mg/dL Urine Ketones (Negative) mg/dL Urine Occult Blood (Negative) Urine Nitrate (Negative) Urine Bilirubin (Negative) Urine Urobilinogen (Less than 2) mg/dL Ur Leukocyte Esterase (Negative) Urine RBC (0-3) /hpf Urine WBC (0-5) /hpf Urine WBC Clumps (None) Urine Bacteria (None) /hpf Micro UA Comment Urine Culture Comments Nasal Screen MRSA (PCR) (Negative) Urine Opiates Screen (Neg) Ur Barbiturates Screen (Neg) Ur Amphetamines Screen (Neg) U Benzodiazepines Scrn (Neg) Urine Cocaine Screen (Neg) U Cannabinoids Screen (Neg) Serum Alcohol (0-5) mg/dL Blood Type Blood Type Recheck Antibody Screen MTS Gel Crossmatch See Detail Blood Bank Comment Bld Prod Order Comment ND ND 06/21/18 Range/Units 06:00 CBC w Diff WBC (4.0-11.0) th/mm3 RBC (4.00-5.30) mil/mm3 Hgb (11.6-15.3) gm/dL Hct (35.0-46.0) % MCV (80.0-100.0) fL MCH (27.0-34.0) pg MCHC (32.0-36.0) % RDW (11.6-17.2) % Plt Count (150-450) th/mm3 MPV (7.0-11.0) fL Prelim Diff (Auto) Neut % (Auto) (16.0-70.0) % Lymph % (Auto) (9.0-44.0) % [place] % (Auto) (0.0-8.0) % Eos % (Auto) (0.0-4.0) % Baso % (Auto) (0.0-2.0) % Neut # (Auto) (1.8-7.7) th/mm3 Lymph # (Auto) (1.0-4.8) th/mm3 [place] # (Auto) (0.0-0.9) th/mm3 Eos # (Auto) (0.0-0.4) th/mm3 Baso # (Auto) (0.0-0.2) th/mm3 WBC Differential Seg Neuts % (Manual) (16-70) % Band Neuts % (Manual) (0-6) % Lymphocytes % (Manual) (9-44) % Monocytes % (Manual) (0-8) % Metamyelocytes % (Man) (0-1) % Myelocytes % (Man) (0-0) % Abs Neuts (Manual) (1.8-7.7) th/mm3 Differential Comment Toxic Granulation (None) Toxic Vacuolation (None) Dohle Bodies (None) Platelet Estimate (Normal) Platelet Morphology (Normal) Ovalocytes (None) Rafiq Cells (None) PT (9.8-11.6) sec INR Ratio APTT (24.3-30.1) sec Puncture Site Patient Temperature O2 Saturation (90-100) % ABG pH (7.380-7.420) ABG pCO2 (38-42) mmHg ABG pO2 (61-120) mmHg ABG HCO3 (22-26) mmol/L ABG O2 Content (12.0-20.0) Vol % ABG Base Excess (-2-2) mmol/L ABG Methemoglobin (0-2) % Agustin Test Hemoglobin (12.0-16.0) G/DL Carboxyhemoglobin (0-4) % O2 Delivery Device Liter Flow L/M Vent Setting Inspired O2 % Critical Value Sodium (136-145) meq/L Potassium (3.5-5.1) meq/L Chloride (98-107) meq/L Carbon Dioxide (21.0-32.0) meq/L Anion Gap (5-15) meq/L BUN (7-18) mg/dL Creatinine (0.50-1.00) mg/dL Estimated GFR (>89) mL/min POC Glucose (68-110) mg/dl Random Glucose (74-106) mg/dL Lactic Acid (0.4-2.0) mmol/L Calcium (8.5-10.1) mg/dL Prot Corrected Calcium (8.5-10.1) mg/dL Phosphorus (2.5-4.9) mg/dL Magnesium (1.5-2.5) mg/dL Total Bilirubin (0.2-1.0) mg/dL Direct Bilirubin Indirect Bilirubin AST (15-37) U/L ALT (10-53) U/L Alkaline Phosphatase (45-117) U/L Ammonia (11-32) mcmol/L Total Creatine Kinase (26-192) U/L CK-MB (CK-2) (0.5-3.6) ng/mL CK-MB (CK-2) % (0.0-4.0) % Troponin I (0.02-0.05) ng/mL Total Protein (6.4-8.2) g/dL Albumin (3.4-5.0) g/dL Urine Color (Yellw/Straw) Urine Clarity (Clear) Urine pH (5.0-8.5) Ur Specific [place] (1.002-1.035) Urine Protein (Neg-Trace) mg/dL Urine Glucose (UA) (Negative) mg/dL Urine Ketones (Negative) mg/dL Urine Occult Blood (Negative) Urine Nitrate (Negative) Urine Bilirubin (Negative) Urine Urobilinogen (Less than 2) mg/dL Ur Leukocyte Esterase (Negative) Urine RBC (0-3) /hpf Urine WBC (0-5) /hpf Urine WBC Clumps (None) Urine Bacteria (None) /hpf Micro UA Comment Urine Culture Comments Nasal Screen MRSA (PCR) (Negative) Urine Opiates Screen (Neg) Ur Barbiturates Screen (Neg) Ur Amphetamines Screen (Neg) U Benzodiazepines Scrn (Neg) Urine Cocaine Screen (Neg) U Cannabinoids Screen (Neg) Serum Alcohol (0-5) mg/dL Blood Type Blood Type Recheck Antibody Screen MTS Gel Crossmatch Blood Bank Comment ND Bld Prod Order Comment Imaging Data Radiologist's impression: Chest X-Ray 06/20/18 18:54 CONCLUSION: Marked free air in the abdomen. Discussed with Dr. Schumacher. Abdomen/Pelvis CT 06/20/18 19:25 CONCLUSION: 1. Prominent amount of free fluid throughout the abdomen. Prominent amount of free air in the nondependent portions of the upper to mid abdomen. Source of the free air and free fluid is not identified. 2. Diffusely nodular contour of the liver and small size of the liver indicating cirrhosis. 3. Calcified gallstones within collapsed gallbladder. 4. Osteoarthritic findings the right hip. Chest X-Ray 06/20/18 20:04 CONCLUSION: 1. Endotracheal tube and nasogastric tube in place. 2. Mild left lung base atelectasis. 3. Likely small left pleural effusion. Chest X-Ray 06/21/18 00:00 CONCLUSION: ET tube in good position. Stable left basilar atelectasis and small left pleural effusion. Discharge Plan Discharge Disposition Patient Disposition: 30 Still Patient Discharge Condition Condition: Serious Discharge Details Diagnosis: Perforated abdominal viscus Date/Time: 06/21/18 06:46 Physicians Team ED Provider: Goyo Schumacher Primary Care Provider: Yaritza Hodge Attending Provider: Neri Lau ED Status: Left Department Discharge Information Discharge Date/Time: 06/20/18 21:55
[2018-06-20 19:23] LABS: ABG Base Excess -25.7 mmol/L (-2-2); ABG PCO2 18 mmHg (38-42); ABG PO2 132 mmHg (61-120)
--- NOTE | 2018-06-20 19:25 | XR ---
EXAM DATE: 06/20/2018 7:15 PM EDT AGE/SEX: 82 years / Female INDICATIONS: Chest pain and short of breath. CLINICAL DATA: This is the patient's initial encounter. Patient reports that signs and symptoms have been present for 1 day and indicates a pain score of Nonresponsive. MEDICAL/SURGICAL HISTORY: Non-responsive. Non-responsive. COMPARISON: No prior exams available for comparison. FINDINGS: Single AP view the chest. There is evidence of marked free air under the hemidiaphragms. Lung volumes are low. Atelectasis at the lung bases. Lungs otherwise clear. Cardiac mediastinal silhouette within normal. No evidence of pneumothorax. CONCLUSION: Marked free air in the abdomen. Discussed with Dr. Schumacher. Electronically signed by: Bryan Kauffman MD 06/20/2018 7:24 PM EDT
[2018-06-20] MEDS ORDERED: Sodium Bicarbonate 8.4% Inj 50 MEQ/50 ML Syringe IV.PUSH ONE (19:37)
--- NOTE | 2018-06-20 19:37 | ED ---
HPI General Chief Complaint: Altered Mental Status Stated Complaint: Low blood sugar Time Seen by Provider: 06/20/18 18:54 Source: patient Mode of arrival: EMS Limitations: altered mental status History of Present Illness HPI narrative: The patient it is a 82-year-old female was initially evaluated by the previous physician. Please refer to the initial history, physical, diagnostic evaluation, treatment modality plan. The patient was signed out at 7 PM with laboratory evaluation and chest x-ray pending for altered mental status. The patient lives alone, does drink on a daily basis, last ate this morning. According to the son the patient was noted to have altered mental status and was complaining of abdominal pain. The patient is altered, is to name and location, but does not know the month or year. Related Data Home Medications Medication Instructions Recorded Confirmed atenolol 25 mg PO DAILY 06/20/18 06/20/18 escitalopram oxalate 10 mg PO DAILY 06/20/18 06/20/18 esomeprazole magnesium [Nexium] 20 mg PO DAILY 06/20/18 06/20/18 hydrochlorothiazide 25 mg PO DAILY 06/20/18 06/20/18 lactulose 15 g PO TID 06/20/18 06/20/18 losartan 50 mg PO DAILY 06/20/18 06/20/18 magnesium oxide 400 mg PO BID 06/20/18 06/20/18 potassium chloride 20 meq PO DAILY 06/20/18 06/20/18 quetiapine 50 mg PO BID 06/20/18 06/20/18 vit [id number] [B 06/20/18 Complex] Allergies Allergy/AdvReac Type Severity Reaction Status Date / Time penicillin G Allergy Severe UNKNOWN Unverified 06/20/18 19:31 pseudoephedrine Allergy Severe UNKNOWN Unverified 06/20/18 19:31 Sulfa (Sulfonamide Allergy Severe UNKNOWN Unverified 06/20/18 19:31 Antibiotics) Review of Systems Except as stated in HPI: all other systems reviewed are negative [facility] Social History Social History Smoking Status: Unknown if ever smoked How Often Do You Have a Drink Containing Alcohol: Unable to Obtain Recent Travel in [facility] within the Last 8 Weeks: No Recent Out of Country Travel within the Last 8 Weeks: No Exam Narrative Exam Narrative: GENERAL: Awake, altered, 82-year-old female appears her stated age and appears in mild discomfort. SKIN: Focused skin assessment warm/dry. HEAD: Atraumatic. Normocephalic. EYES: Pupils equal and round. Mild pallor noted to lower lids. ENT: No nasal bleeding or discharge. Dry mucous membranes. NECK: Trachea midline. No JVD. CARDIOVASCULAR: Regular, tachycardic with a heart rate of 100. RESPIRATORY: No accessory muscle use. Diminished breath sounds in the right base. GASTROINTESTINAL: Abdomen distended, tender. No guarding rigidity. MUSCULOSKELETAL: No obvious deformities. No clubbing. No cyanosis. No edema. NEUROLOGICAL: Awake and alert. No obvious cranial nerve deficits. Motor grossly within normal limits. Oriented to name and place, but not month or year. PSYCHIATRIC: Appears confused. Course Initial Documented Vital Signs Temperature 97.3 F L 06/20/18 18:34 Pulse Rate 95 H 06/20/18 18:34 Respiratory Rate 24 06/20/18 18:34 Blood Pressure 112/70 06/20/18 18:34 Pulse Oximetry 96 06/20/18 18:34 Last Documented Vital Signs Temperature 97.3 F L 06/20/18 19:00 Pulse Rate 92 H 06/20/18 19:30 Respiratory Rate 24 06/20/18 19:30 Blood Pressure 87/77 L 06/20/18 19:30 Pulse Oximetry 90 L 06/20/18 19:30 Procedures Intubation Time Out Performed: Yes Sedative: etomidate Mg Given: 20 Paralytic: rocuronium Mg Given: 75 Laryngoscope: Jenni ET Tube Size: 8 ET Tube Uncuffed: No Tube Secured Depth (cm): 22 Tube Secured Location: lips Tube Placement Confirmation: visualized tube passing through cords, equal breath sounds bilaterally, no breath sounds over epigastrium and confirmation by capnometry Patient Tolerated Procedure: well Intubation Complications: none Critical Care Time Critical Care Time: Yes Total Critical Care Time: 45 Attestation: Aggregate critical care time was 45 minutes. Time to perform other separately billable procedures was not included in the critical care time. My time did not include minutes spent treating any other patients simultaneously or on activities that did not directly contribute to the patient's treatment. The services I provided to this patient were to treat and/or prevent clinically significant deterioration that could result in: Sepsis, hypoxia, lactic acidosis , . I provided critical care services requiring my management, as noted below: Chart data review, documentation time, medication orders and management, vital sign assessments/reviewing monitor data, ordering and reviewing lab tests, ordering and interpreting/reviewing x-rays and diagnostic studies, care of the patient and discussion of the patient with the admitting physicians. Medical Decision Making MDM Narrative Medical decision making narrative: The patient was initially evaluated by the previous physician. Please refer to initial history, physical, diagnostic evaluation, treatment modality plan for the patient was signed at 7 PM laboratory evaluation a chest x-ray pending for altered mental status. The patient was reevaluated at 7:05 PM, was noted to have a distended abdomen that was tender. X-ray was reviewed, discussed the patient with the radiologist who agrees that it appears the patient has free air, possibly from perforation. Therefore, stat CT of the abdomen and pelvis without IV contrast was ordered. I discussed the patient with the on-call surgeon, Dr. Jorge, at 7:30 PM. The patient will be admitted to the intensive surgical care team and will be admitted to the intensive surgical care unit, patient will most likely go to the [facility]. An NG tube will be placed. I reviewed the CT of the abdomen and pelvis, the patient has free air, most likely perforated viscus. The patient's ABG reveals a pH of 6.964 with base deficit of -25.7, the patient was a tax consultant 1 amp of bicarb and 1 L of IV fluids. The patient will be kept n.p.o. I discussed the patient with the on-call machine room operator, Dr. Lau, who agrees with admission. The patient will go emergently to the intensive surgical care unit at [facility], [facility]. I did discuss the findings with the patient's son at bedside. The patient returned from CT, confused, hypotensive, tachycardic. The patient has obvious anion gap with most likely lactic acidosis, her rate of breathing increased. Therefore, the patient was intubated using etomidate and rocuronium. The patient will be transferred emergently to [facility]. I once again discussed the critical nature of the patient with the son at bedside. Differential Diagnosis Differential Diagnosis: Differential diagnoses include subdural hemorrhage, perforated viscus, perforated gastric ulcer, perforated duodenal ulcer, perforated diverticulitis, free air in the abdomen, sepsis, lactic acidosis, acute renal failure. Lab Data Lab results reviewed: Yes I reviewed the patient's lab results. Lab results narrative: White count is 10.6, hemoglobin 13.9. Sodium is 127. Potassium 5.2. BUN is elevated at 90. INR was 2.4 Result diagrams: 06/20/18 09:00 06/20/18 09:00 Lab Results 06/20/18 06/20/18 06/20/18 Range/Units 09:00 09:00 09:00 CBC w Diff Slide review pending WBC 10.6 (4.0-11.0) th/mm3 RBC 3.70 L (4.00-5.30) mil/mm3 Hgb 13.9 (11.6-15.3) gm/dL Hct 40.2 (35.0-46.0) % MCV 108.6 H (80.0-100.0) fL MCH 37.4 H (27.0-34.0) pg MCHC 34.4 (32.0-36.0) % RDW 14.7 (11.6-17.2) % Plt Count 225 (150-450) th/mm3 MPV 8.7 (7.0-11.0) fL Neut % (Auto) 77.1 H (16.0-70.0) % Lymph % (Auto) 14.5 (9.0-44.0) % Perry % (Auto) 8.1 H (0.0-8.0) % Eos % (Auto) 0.2 (0.0-4.0) % Baso % (Auto) 0.1 (0.0-2.0) % Neut # (Auto) 8.2 H (1.8-7.7) th/mm3 Lymph # (Auto) 1.5 (1.0-4.8) th/mm3 Perry # (Auto) 0.9 (0.0-0.9) th/mm3 Eos # (Auto) 0.0 (0.0-0.4) th/mm3 Baso # (Auto) 0.0 (0.0-0.2) th/mm3 Differential Comment . PT 24.7 H (9.8-11.6) sec INR 2.4 Ratio APTT 42.7 H (24.3-30.1) sec Puncture Site Patient Temperature O2 Saturation (90-100) % ABG pH (7.380-7.420) ABG pCO2 (38-42) mmHg ABG pO2 (61-120) mmHg ABG HCO3 (22-26) mmol/L ABG O2 Content (12.0-20.0) Vol % ABG Base Excess (-2-2) mmol/L ABG Methemoglobin (0-2) % Agustin Test Hemoglobin (12.0-16.0) G/DL Carboxyhemoglobin (0-4) % O2 Delivery Device Liter Flow L/M Inspired O2 % Critical Value Sodium 127 L (136-145) meq/L Potassium 5.2 H (3.5-5.1) meq/L Chloride 92 L (98-107) meq/L Carbon Dioxide 7.4 L (21.0-32.0) meq/L Anion Gap 28 H (5-15) meq/L BUN 40 H (7-18) mg/dL Random Glucose 94 (74-106) mg/dL Calcium 7.9 L (8.5-10.1) mg/dL Ammonia (11-32) mcmol/L Total Creatine Kinase 1589 H (26-192) U/L Albumin 2.4 L (3.4-5.0) g/dL 06/20/18 06/20/18 Range/Units 19:10 19:15 CBC w Diff WBC (4.0-11.0) th/mm3 RBC (4.00-5.30) mil/mm3 Hgb (11.6-15.3) gm/dL Hct (35.0-46.0) % MCV (80.0-100.0) fL MCH (27.0-34.0) pg MCHC (32.0-36.0) % RDW (11.6-17.2) % Plt Count (150-450) th/mm3 MPV (7.0-11.0) fL Neut % (Auto) (16.0-70.0) % Lymph % (Auto) (9.0-44.0) % Perry % (Auto) (0.0-8.0) % Eos % (Auto) (0.0-4.0) % Baso % (Auto) (0.0-2.0) % Neut # (Auto) (1.8-7.7) th/mm3 Lymph # (Auto) (1.0-4.8) th/mm3 Perry # (Auto) (0.0-0.9) th/mm3 Eos # (Auto) (0.0-0.4) th/mm3 Baso # (Auto) (0.0-0.2) th/mm3 Differential Comment PT (9.8-11.6) sec INR Ratio APTT (24.3-30.1) sec Puncture Site Left brachial Patient Temperature 98.6 O2 Saturation 95 (90-100) % ABG pH 6.96 L* (7.380-7.420) ABG pCO2 18 L* (38-42) mmHg ABG pO2 132 H (61-120) mmHg ABG HCO3 4 L* (22-26) mmol/L ABG O2 Content 18.5 (12.0-20.0) Vol % ABG Base Excess -25.7 L (-2-2) mmol/L ABG Methemoglobin 1.4 (0-2) % Agustin Test Y Hemoglobin 13.7 (12.0-16.0) G/DL Carboxyhemoglobin 0.3 (0-4) % O2 Delivery Device Nasal cannula Liter Flow 3.00 L/M Inspired O2 21 % Critical Value Yes Sodium (136-145) meq/L Potassium (3.5-5.1) meq/L Chloride (98-107) meq/L Carbon Dioxide (21.0-32.0) meq/L Anion Gap (5-15) meq/L BUN (7-18) mg/dL Random Glucose (74-106) mg/dL Calcium (8.5-10.1) mg/dL Ammonia 61 H (11-32) mcmol/L Total Creatine Kinase (26-192) U/L Albumin (3.4-5.0) g/dL Imaging Data Attestation: I personally reviewed and interpreted this imaging study as follows : My impression: Chest x-ray reveals free air under the diaphragm. Radiologist's impression: Chest X-Ray 06/20/18 18:54 CONCLUSION: Marked free air in the abdomen. Discussed with Dr. Schumacher. Abdomen/Pelvis CT 06/20/18 19:25 CONCLUSION: 1. Prominent amount of free fluid throughout the abdomen. Prominent amount of free air in the nondependent portions of the upper to mid abdomen. Source of the free air and free fluid is not identified. 2. Diffusely nodular contour of the liver and small size of the liver indicating cirrhosis. 3. Calcified gallstones within collapsed gallbladder. 4. Osteoarthritic findings the right hip. Discharge Plan Discharge Disposition Patient Disposition: 30 Still Patient Discharge Condition Condition: Serious Discharge Details Diagnosis: Perforated abdominal viscus Physicians Team ED Provider: Goyo Schumacher Primary Care Provider: Yaritza Hodge Rxs /Orders / Referrals /Forms Prescriptions: No Action losartan 50 mg Tablet 50 mg PO DAILY RF: 0 potassium chloride 20 mEq Packet 20 meq PO DAILY RF: 0 hydrochlorothiazide 25 mg Tablet 25 mg PO DAILY RF: 0 esomeprazole magnesium [Nexium] 20 mg Capsule,Delayed Release(Dr/Ec) 20 mg PO DAILY RF: 0 escitalopram oxalate 10 mg Tablet 10 mg PO DAILY RF: 0 lactulose 10 gram/15 mL Solution 15 g PO TID RF: 0 vit [id number] [B Complex] 1.7-20-2-1.2 mg/mL Liquid RF: 0 atenolol 25 mg Tablet 25 mg PO DAILY RF: 0 quetiapine 50 mg Tablet 50 mg PO BID RF: 0 magnesium oxide 400 mg Capsule 400 mg PO BID RF: 0 Status ED Status: Pending Admission
[2018-06-20 19:40] LABS: Chloride 92 meq/L (98-107); Potassium 5.2 meq/L (3.5-5.1); Sodium 127 meq/L (136-145)
[2018-06-20 19:44] LABS: Calcium 7.9 mg/dL (8.5-10.1)
[2018-06-20 19:45] LABS: Albumin 2.4 g/dL (3.4-5.0); Anion Gap 28 meq/L (5-15); Blood Urea Nitrogen 40 mg/dL (7-18); Carbon Dioxide 7.4 meq/L (21.0-32.0); Glucose,Random 94 mg/dL (74-106)
[2018-06-20 19:46] LABS: Activated Partial Thrombo Time 42.7 sec (24.3-30.1); INR 2.4 Ratio; Prothrombin Time 24.7 sec (9.8-11.6)
[2018-06-20 19:47] LABS: Alanine Aminotransferase 490 U/L (10-53)
[2018-06-20 19:48] LABS: Glomerular Filtration Rate 16 mL/min (>89)
[2018-06-20 19:49] LABS: Total Protein 5.6 g/dL (6.4-8.2)
[2018-06-20 19:50] LABS: Alkaline Phosphatase 101 U/L (45-117)
[2018-06-20] MEDS ORDERED: Etomidate Inj 20 MG/10 ML Ampul IV.PUSH ONE ×2 (19:50→20:09)
[2018-06-20] MEDS ORDERED: Propofol 1000 mg/100 ml Inj 1,000 MG/100 ML BOTTLE ONE (19:51)
[2018-06-20 19:52] LABS: Baso % (Auto) 0.1 % (0.0-2.0); Eos % (Auto) 0.2 % (0.0-4.0); Hematocrit 40.2 % (35.0-46.0); Hemoglobin 13.9 gm/dL (11.6-15.3); Lymph # (Auto) 1.5 th/mm3 (1.0-4.8); Lymph % (Auto) 14.5 % (9.0-44.0); Mean Corpuscular HGB Conc 34.4 % (32.0-36.0); Mean Corpuscular Hemoglobin 37.4 pg (27.0-34.0); Mean Corpuscular Volume 108.6 fL (80.0-100.0); Mean Platelet Volume 8.7 fL (7.0-11.0); Mono # (Auto) 0.9 th/mm3 (0.0-0.9); Mono % (Auto) 8.1 % (0.0-8.0); Neut # (Auto) 8.2 th/mm3 (1.8-7.7); Neut % (Auto) 77.1 % (16.0-70.0); Platelet Count 225 th/mm3 (150-450); Red Cell Distribution Width 14.7 % (11.6-17.2); White Blood Count 10.6 th/mm3 (4.0-11.0)
[2018-06-20 19:53] LABS: Troponin I 0.11 ng/mL (0.02-0.05)
[2018-06-20 19:55] LABS: Aspartate Aminotransferase 1615 U/L (15-37)
[2018-06-20 20:02] LABS: Creatine Kinase 1589 U/L (26-192)
--- NOTE | 2018-06-20 20:03 | CT ---
EXAM DATE: 06/20/2018 7:49 PM EDT AGE/SEX: 82 years / Female INDICATIONS: Possible free air. CLINICAL DATA: This is the patient's initial encounter. Patient reports that signs and symptoms have been present for 1 day and indicates a pain score of Nonresponsive. MEDICAL/SURGICAL HISTORY: Non-responsive. Non-responsive. RADIATION DOSE: 22.80 CTDI (mGy) COMPARISON: No prior exams available for comparison. TECHNIQUE: Multiple contiguous axial images were obtained through the abdomen. Images were obtained using multiple row detector helical technique. Using automated exposure control and adjustment of the mA and/or kV according to patient size, radiation dose was kept as low as reasonably achievable to o btain optimal diagnostic quality images. DICOM format image data is available electronically for rev iew and comparison. FINDINGS: Lower Lungs: Mild atelectasis at the lung bases. Liver: The liver is small with diffusely nodular contour indicating cirrhosis. No focal mass identifi ed. Calcified gallstones are seen within a collapsed gallbladder. Spleen: Homogeneous density without enlargement. Pancreas: Unremarkable without mass or calcification. Kidneys: Normal in size and shape. No evidence of mass or hydronephrosis. Adrenal Glands: Unremarkable. Aorta: Diffuse aortic calcification. Diameter within normal limits. Bowel/Mesentery: There is a large amount of free fluid and free air in the abdomen. No evidence of b owel dilatation. Appendix not identified. Abdominal Wall: Intact. Retroperitoneum: No evidence of adenopathy in the retrocrural, para-aortic, or deep pelvic regions. Bladder: Contours are smooth. Reproductive Organs: No abnormal masses or calcifications seen. Inguinal: The inguinal region is unremarkable without evidence of adenopathy. Bony Structures: Osteoarthritic findings of the right hip. CONCLUSION: 1. Prominent amount of free fluid throughout the abdomen. Prominent amount of free air in the nondep endent portions of the upper to mid abdomen. Source of the free air and free fluid is not identified. 2. Diffusely nodular contour of the liver and small size of the liver indicating cirrhosis. 3. Calcified gallstones within collapsed gallbladder. 4. Osteoarthritic findings the right hip. Electronically signed by: Bryan Kauffman MD 06/20/2018 8:02 PM EDT
[2018-06-20 20:20] LABS: CKMB Percent 2.4 % (0.0-4.0); Creatine Kinase MB 38.1 ng/mL (0.5-3.6)
[2018-06-20 20:26] LABS: Bilirubin,Urine Negative (Negative); Clarity,Urine Clear (Clear); Color,Urine Yellow (Yellw/Straw); Glucose,Urine (UA) Negative (Negative); Leukocyte Esterase,Urine Moderate (Negative); Nitrite,Urine Negative (Negative); PH,Urine 5.5 (5.0-8.5); Urobilinogen,Urine 0.2 mg/dL (Less than 2)
[2018-06-20 20:35] LABS: Cannabinoid Screen,Urine Neg (Neg)
[2018-06-20 20:37] LABS: Bacteria,Urine Moderate /hpf
[2018-06-20 20:43] LABS: Amphetamine Screen,Urine Neg (Neg)
[2018-06-20 20:48] LABS: Barbiturate Screen,Urine Neg (Neg)
--- NOTE | 2018-06-20 20:52 | XR ---
EXAM DATE: 06/20/2018 8:40 PM EDT AGE/SEX: 82 years / Female INDICATIONS: Post intubation and NG tube placememt. CLINICAL DATA: This is the patient's subsequent encounter. Patient reports that signs and symptoms h ave been present for 1 day and indicates a pain score of Nonresponsive. MEDICAL/SURGICAL HISTORY: Non-responsive. Non-responsive. COMPARISON: [facility], CHEST 1V SINGLE AP, 06/20/2018. . FINDINGS: Single AP view the chest. Endotracheal tube is in place with the tip 1.5 cm above the adam. Nasogas tric tube is in place and coiled in the stomach with the tip in the proximal stomach. Mild atelectasi s at the left lung base. Lungs otherwise clear. Blunting of left costophrenic sulcus suggesting a sma ll left pleural effusion. No evidence of pneumothorax. CONCLUSION: 1. Endotracheal tube and nasogastric tube in place. 2. Mild left lung base atelectasis. 3. Likely small left pleural effusion. Electronically signed by: Bryan Kauffman MD 06/20/2018 8:51 PM EDT
[2018-06-20 20:56] LABS: Lymphocytes 15 % (9-44); Metamyelocytes 45 % (0-1); Monocytes 9 % (0-8); Myelocytes 3 % (0-0)
[2018-06-20 20:57] LABS: Toxic Vacuolation Present
[2018-06-20 20:58] LABS: Cocaine Screen,Urine Neg (Neg)
[2018-06-20 20:59] LABS: Burr Cells 1+; Ovalocytes 1+; Platelet Estimate Normal (Normal); Platelet Morphology Normal (Normal)
--- NOTE | 2018-06-20 20:59 | MB ---
cc: Warren Berger MD, Slobodan MD DATE: 06/20/2018 REASON FOR CONSULTATION: Perforated viscus, septic shock. CRITICAL CARE TIME: 42 minutes HISTORY OF PRESENT ILLNESS: This 84-year-old female was admitted to the [facility] with a history of altered mental status. Apparently, the patient lives alone. She is a heavy drinker and had previous suicide attempt. The patient is noncompliant. She is oriented only to name and that is it. Information was obtained apparently through the son. We do not know how long the patient has been ill. Patient was brought to the emergency room apparently earlier today and was initially evaluated for mental status changes when she was noted to have distended abdomen and full workup revealed free air under the diaphragm i.e. pneumoperitoneum with massive amount of fluid freely in the abdomen, consistent with a hollow viscus perforation. I was consulted this evening to see the patient PAST MEDICAL HISTORY: Heavy alcohol intake for many, many years. The patient had been here in 2007 for suicide attempt with Tylenol overdose. I know about any other medical/surgical. PHYSICAL EXAMINATION: GENERAL: Reveals 82-year-old female, now intubated, ventilated, and sedated on Versed. HEENT: Normocephalic. No trauma to the head. Pupils are equal and nonreactive. Extraocular muscles cannot be tested. NECK: Short. CHEST: Bilateral breath sounds. The patient is fully ventilatory support on assist control mode. HEART: Irregular rhythm, about 110. The patient is hypotensive with systolic blood pressure in the range of 80 and clearly hypovolemic and under resuscitated. ABDOMEN: Distended and now the patient is intubated. There is no rebound, no guarding, but there is definitely distention and firmness in all 4 quadrants. EXTREMITIES: No fractures noted. The patient has palpable femoral pulses distally, no pulses by palpation. She is vasoconstricted and volume constricted. NEUROLOGIC: Cannot be performed. Apparently, the patient was awake, alert, but disoriented prior to intubation. I reviewed laboratory and diagnostic procedures. This patient has a perforated viscus, most likely upper abdominal organ either a duodenal or gastric perforation with massive amount of fluid in the abdomen and in addition of course consequent peritonitis. This probably is at least 2-3 days old. The patient is now ill and clearly developing systemic symptoms. In addition, this could be necrotic bowel. Metabolically, patient is massively metabolically acidotic with some respiratory compensation with pH under 7, which is non-compatible with a prolonged period of life. So all in all, this is sepsis, hypovolemic shock, perforated viscus, peritonitis and severe metabolic acidosis. If not immediately corrected, the patient will and even with the best care patient's mortality is probably about 90-95% range within the next 48 hours. At this point, the patient will be transferred to [facility], resuscitated underway and taken to the operating room on an emergent basis for exploration washout and repair of the perforation. Patient will require prolonged resuscitation postoperatively in the ICU and there is a high chance the patient may not survive the next 48 hours as above noted. I have discussed this at length with her son but he would like to proceed with any reasonable effort that we can save the patient. Thank you very much for referral. Critical care time 42 minutes MD MAURI Rendon/ , 08:34 PM , 08:43 PM AGUSTÍN
[2018-06-20 21:13] LABS: Opiate Screen,Urine Neg (Neg)
[2018-06-20 22:57] LABS: ABG Base Excess -19.2 mmol/L (-2-2); ABG PCO2 30 mmHg (38-42); ABG PO2 472 mmHG (61-120)
[2018-06-20] MEDS ORDERED: Acetaminophen 325 MG Tablet PO PRN (23:42)
[2018-06-20] MEDS ORDERED: Bisacodyl 10 MG Supp RECTAL PRN (23:42)
[2018-06-20] MEDS ORDERED: Midazolam 50 MG/50 ML Inj 50 MG/50 ML BAG IV.CONT PRN (23:42)
[2018-06-20] MEDS ORDERED: Vancomycin Consult Pharmacy OTHER ONE (23:42)
--- NOTE | 2018-06-20 23:42 | P.HPCC ---
History of Present Illness Primary Care Physician: Yaritza Hodge MD History of Present Illness: 82-year-old female presented to emergency department at [facility] for an evaluation of altered mental status. The patient lives alone, does drink on a daily basis, last ate this morning. According to the son the patient was noted to have altered mental status and was complaining of abdominal pain. In the emergency department the patient was altered, oriented to name and location, but did not know the month or year. The CT of the abdomen revealed free air in abdominal cavity and patient was emergently taken to operating room. Perforated gastric ulcer was found and treated with a patch by Dr. Reyna. Inpatient Certification: I certify that the inpatient services were ordered in accordance with Medicare regulations governing the order. This includes certification that hospital inpatient services are reasonable and necessary and in the case of services not specified as inpatient-only under 42 CFR 419.22(n), that they are appropriately provided as inpatient services in accordance to with the 2-midnight benchmark under 43 CFR 412.3(e) Review of Systems unobtainable due to endotracheal tube PMFSH - History History Provided By: Family Member, Treasury Assistant / EMT - Medical / Surgical Hx Neg / Unobtainable Medical Problems Denied: Unable to Obtain Surgical History: Unable to Obtain - Tobacco History Smoking Status: Unknown if ever smoked - Alcohol History How Often Do You Have a Drink Containing Alcohol: Unable to Obtain - Travel History Recent Travel in the [place] Within the Last 8 Weeks: No Recent Travel Out of the Country Within the Last 8 Weeks: No - Immunization History Tetanus Immunization: Unsure Medications and Allergies Allergies Allergy/AdvReac Type Severity Reaction Status Date / Time penicillin G Allergy Severe UNKNOWN Unverified 06/20/18 19:31 pseudoephedrine Allergy Severe UNKNOWN Unverified 06/20/18 19:31 Sulfa (Sulfonamide Allergy Severe UNKNOWN Unverified 06/20/18 19:31 Antibiotics) Home Medications Medication Instructions Recorded Confirmed Type atenolol 25 mg PO DAILY 06/20/18 06/20/18 History escitalopram oxalate 10 mg PO DAILY 06/20/18 06/20/18 History esomeprazole magnesium [Nexium] 20 mg PO DAILY 06/20/18 06/20/18 History hydrochlorothiazide 25 mg PO DAILY 06/20/18 06/20/18 History lactulose 15 g PO TID 06/20/18 06/20/18 History losartan 50 mg PO DAILY 06/20/18 06/20/18 History magnesium oxide 400 mg PO BID 06/20/18 06/20/18 History potassium chloride 20 meq PO DAILY 06/20/18 06/20/18 History quetiapine 50 mg PO BID 06/20/18 06/20/18 History vit [id number] [B 06/20/18 History Complex] Results - Labs CBC & Chem 7: 06/20/18 09:00 06/20/18 09:00 Labs: Short CBC 06/20/18 Range/Units 09:00 WBC 10.6 (4.0-11.0) th/mm3 Hgb 13.9 (11.6-15.3) gm/dL Hct 40.2 (35.0-46.0) % Plt Count 225 (150-450) th/mm3 BMP 06/20/18 09:00 Sodium 127 L Potassium 5.2 H Chloride 92 L Carbon Dioxide 7.4 L BUN 40 H Creatinine 2.90 H Calcium 7.9 L Cardiac Enzymes 06/20/18 Range/Units 09:00 Total Creatine Kinase 1589 H (26-192) U/L CK-MB (CK-2) 38.1 H (0.5-3.6) ng/mL Troponin I 0.11 H (0.02-0.05) ng/mL Liver Function 06/20/18 Range/Units 09:00 Total Bilirubin 4.0 H (0.2-1.0) mg/dL AST 1615 H (15-37) U/L ALT 490 H (10-53) U/L Alkaline Phosphatase 101 (45-117) U/L Albumin 2.4 L (3.4-5.0) g/dL Urine 06/20/18 Range/Units 20:15 Urine Color Yellow (Yellw/Straw) Urine Clarity Clear (Clear) Urine pH 5.5 (5.0-8.5) Ur Specific [place] 1.010 (1.002-1.035) Urine Protein Negative (Neg-Trace) mg/dL Urine Glucose (UA) Negative (Negative) mg/dL - Imaging Impressions Chest X-Ray 06/20/18 18:54 CONCLUSION: Marked free air in the abdomen. Discussed with Dr. Schumacher. Abdomen/Pelvis CT 06/20/18 19:25 CONCLUSION: 1. Prominent amount of free fluid throughout the abdomen. Prominent amount of free air in the nondependent portions of the upper to mid abdomen. Source of the free air and free fluid is not identified. 2. Diffusely nodular contour of the liver and small size of the liver indicating cirrhosis. 3. Calcified gallstones within collapsed gallbladder. 4. Osteoarthritic findings the right hip. Chest X-Ray 06/20/18 20:04 CONCLUSION: 1. Endotracheal tube and nasogastric tube in place. 2. Mild left lung base atelectasis. 3. Likely small left pleural effusion. - ABG Attestation: I personally reviewed and interpreted this ABG as follows: Exam Vital signs: Vital Signs 06/20/18 18:34 06/20/18 19:00 06/20/18 19:30 Temperature 97.3 F L 97.3 F L Pulse Rate 95 H 95 H 92 H Respiratory Rate 24 24 24 Blood Pressure 112/70 112/70 87/77 L Pulse Oximetry 96 96 90 L 06/20/18 20:00 Temperature Pulse Rate Respiratory Rate 20 Blood Pressure Pulse Oximetry 96 Intake & Output 06/20/18 06/20/18 06/21/18 06:59 18:59 06:59 Intake Total 1100 / 1100 Balance 1100 / 1100 Weight 77.111 kg Intake: IV 1100 / 1100 Maxipime Inj 2,000 MG In NS Inj 100 / 100 100 ML @ 200 mls/hr IV.SIG ONCE ONE Rx#:[id number] NS Inj 1,000 ML @ Wide Open IV. 1000 / 1000 SIG BOLUS ONE Rx#:[id number] - Constitutional severe distress - Routine HEENT Exam Head: Present: atraumatic Eye: Present: PERRL ENT: Present: mucous membranes moist - Routine Respiratory Exam Present: patient mechanically ventilated. Absent: rhonchi, stridor, wheezes - Routine Cardiovascular Exam Present: RRR, S1, S2 - Routine Abdominal Exam Present: soft, tenderness, distended - Routine Extremities Exam Absent: cyanosis, clubbing, edema - Routine Skin Exam Present: intact. Absent: cyanosis, erythema - Routine Neurological Exam Absent: facial asymmetry Septic Shock Reassessment Septic shock perfusion: reassessment completed Caprini VTE Risk Assessment Caprini VTE Risk Assessment: Moderate/High Risk (score >= 2) Caprini Risk Assessment Model: Point Value = 1 Point Value = 2 Point Value = 3 Point Value = 5 Age 41-60 Minor surgery BMI > 25 kg/m2 Swollen legs Varicose veins or History of unexplained or recurrent spontaneous Oral contraceptives or hormone replacement Sepsis (< 1 month) Serious lung disease, including pneumonia (< 1 month) Abnormal pulmonary function Acute myocardial infarction Congestive heart failure (< 1 month) History of inflammatory bowel disease Medical patient at bed rest Age 61-74 Arthroscopic surgery Major open surgery (> 45 min) Laparoscopic surgery (> 45 min) Malignancy Confined to bed (> 72 hours) Immobilizing plaster cast Central venous access Age >= 75 History of VTE Family history of VTE Factor V Leiden Prothrombin [id number] Lupus anticoagulant Anticardiolipin antibodies Elevated serum homocysteine Heparin-induced thrombocytopenia Other congenital or acquired thrombophilia Stroke (< 1 month) Elective arthroplasty Hip, pelvis, or leg fracture Acute spinal cord injury (< 1 month) Prophylaxis Regimen: Total Risk Factor Score Risk Level Prophylaxis Regimen 0-1 Low Early ambulation 2 Moderate Order ONE of the following: *Sequential Compression Device (SCD) *Heparin 5000 units SQ BID 3-4 Higher Order ONE of the following medications: *Heparin 5000 units SQ TID *Enoxaparin/Lovenox 40 mg SQ daily (WT < 150 kg, CrCl > 30 mL/min) *Enoxaparin/Lovenox 30 mg SQ daily (WT < 150 kg, CrCl > 10-29 mL/min) *Enoxaparin/Lovenox 30 mg SQ BID (WT < 150 kg, CrCl > 30 mL/min) AND/OR *Sequential Compression Device (SCD) 5 or more Highest Order ONE of the following medications: *Heparin 5000 units SQ TID (Preferred with Epidurals) *Enoxaparin/Lovenox 40 mg SQ daily (WT < 150 kg, CrCl > 30 mL/min) *Enoxaparin/Lovenox 30 mg SQ daily (WT < 150 kg, CrCl > 10-29 mL/min) *Enoxaparin/Lovenox 30 mg SQ BID (WT < 150 kg, CrCl > 30 mL/min) AND *Sequential Compression Device (SCD) Assessment and Plan - Assessment and Plan Plan: Respiratory failure -Intubated for an airway protection -No weaning until neurologically and hemodynamically improved -Vent bundle -DuoNeb scheduled and as needed Perforated gastric ulcer -Status post emergent surgery with patch repair -Azactam, vancomycin, Flagyl, Diflucan -Protonix IV twice daily -Follow-up blood cultures Metabolic lactic acidosis -Aggressive IV fluid resuscitation -Monitor trend Shock -Due to above -Levophed/vasopressin as needed to keep map above 65 -Aggressive IV fluid resuscitation Acute kidney injury -Strict I's and O's -IV fluid resuscitation -Monitor trend creatinine and electrolyte levels Coagulopathy -Underlying liver disease?? -Monitor for bleeding -Monitor frequent labs -FFP's if indicated DVT GI prophylaxis -Teds SCDs -Subcu heparin -Pepcid Critical Care: The total critical care time was 35 minutes. Time to perform other separately billable procedures was not included in the critical care time.
[2018-06-20] MEDS ORDERED: Pantoprazole Inj 40 MG Vial IV.PUSH SCH (23:45)
[2018-06-20] MEDS ORDERED: Vasopressin Inj 40 UNIT in Dextrose 5% in Water Inj 98 ML IV.CONT SCH ×2 (23:45)
[2018-06-20] MEDS ORDERED: Sod Chloride 0.9% Inj 2,000 ML IV.SIG ONE ×2 (23:54)
[2018-06-21] MEDS ORDERED: Midazolam 50 MG/50 ML Inj 50 MG/50 ML BAG IV.CONT PRN (00:11)
[2018-06-21] MEDS ORDERED: Vancomycin Consult Pharmacy OTHER SCH (00:15)
[2018-06-21 00:36] LABS: Hematocrit 24.8 % (35.0-46.0); Hemoglobin 8.6 gm/dL (11.6-15.3); Mean Corpuscular HGB Conc 34.6 % (32.0-36.0); Mean Corpuscular Hemoglobin 37.3 pg (27.0-34.0); Mean Platelet Volume 8.5 fL (7.0-11.0); Platelet Count 130 th/mm3 (150-450); Red Cell Distribution Width 14.1 % (11.6-17.2); White Blood Count 6.8 th/mm3 (4.0-11.0)
[2018-06-21] MEDS: Oral Hygiene Kit OROPHARYNG SCH ×2 (00:40→03:48)
[2018-06-21 00:46] LABS: ABG PCO2 17 mmHg (38-42); ABG PO2 472 mmHg (61-120)
--- NOTE | 2018-06-21 00:50 | MP ---
cc: Warren Berger MD DATE OF OPERATION: 06/20/2018 PREOPERATIVE DIAGNOSIS: Septic shock, perforated viscus, peritonitis, renal failure, respiratory failure and hypovolemic shock. POSTOPERATIVE DIAGNOSIS: Septic shock, perforated viscus, peritonitis, renal failure, respiratory failure, hypovolemic shock, and perforated pyloric channel ulcer. OPERATIVE PROCEDURES: Exploratory laparotomy, repair of the pyloric channel ulcer with a Zeb patch, evacuation of about 3500 mL of purulent fluid, cultures, and wound VAC placement. SURGEON: Warren Berger MD ANESTHESIA: General. ESTIMATED BLOOD LOSS: 100 mL. DESCRIPTION OF PROCEDURE: The patient was prepped and draped in the usual fashion. The abdominal incision was made and the abdomen was entered. Upon entrance of the abdomen, it is noted that the patient has a hemorrhagic omentum, which appears to be ischemic and nodular. 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 There is about 3.5 L of bilious material and dense purulent fluid in the abdomen. This was suctioned off and then the abdomen was irrigated with several liters of warm saline. The abdomen is now explored in quadrants. The patient has, as noted, liver that is cirrhotic. The large bowel appears to be okay, although somewhat dusky in color due to the hypovolemia and volume constriction. The small bowel was run. There is no perforation; however, the patient has a clearly ischemic small bowel, which appears to be somewhat purple, mainly in the distal portion; however, this is mainly due to the hypovolemia and volume constriction and the low flow state. There is clearly pulse in the mesenteric vessels. Rectum is okay. The stomach is decompressed and the patient has a pyloric channel ulcer anteriorly, which is perforated, measuring about 1 cm in size, fairly large. The edges are clean. The ulcer was closed with 2-0 silk interrupted stitches and then a Zeb patch of omentum was placed over it. Again, liver is noted to be extremely cirrhotic and firm. There are fibrin deposits all throughout the abdomen mainly in the upper portion which is consistent with perforation and contamination of about at least 2-3 days old. The abdomen is now irrigated with more saline and then in the face of the ischemic, hypoperfused intestine, he patient had a wound VAC placed using ABThera. I will go back to this abdomen, probably in the next 48 hours if the patient stabilizes. By that time, with improvement of volume status, preloading and volume optimization of cardiac output should increase and bowel should look better. The other option is bowel will proceed to become necrotic at this point, and if that happens, the patient will have no chance of survival. The patient is taken out of the operating room on 2 vasopressors to surgical ICU. MD MAURI Rendon/tl , 11:45 PM , 11:54 PM [email or web address]
[2018-06-21] MEDS ORDERED: Sodium Bicarbonate 8.4% Inj 150 MEQ in Dextrose 5% in Water Inj 850 ML IV.CONT SCH ×2 (01:00)
--- NOTE | 2018-06-21 01:01 | XR ---
EXAM DATE: 06/21/2018 12:33 AM EDT AGE/SEX: 82 years / Female INDICATIONS: ET tube placement. CLINICAL DATA: This is the patient's subsequent encounter. Patient reports that signs and symptoms h ave been present for 1 day and indicates a pain score of Nonresponsive. MEDICAL/SURGICAL HISTORY: Non-responsive. Non-responsive. COMPARISON: [facility], CHEST 1V SINGLE AP, 06/20/2018. . FINDINGS: Endotracheal tube tip 2.7 cm above the adam. Right internal jugular catheter tip in the mid superio r vena cava. Gastric tube traverses the [id number]. The lungs are symmetrically aerated. Minimal b lunting of the left costophrenic angle similar to prior. The heart is normal in size. CONCLUSION: ET tube in good position. Stable left basilar atelectasis and small left pleural effusion. Electronically signed by: Sebastian Arango MD 06/21/2018 1:00 AM EDT
[2018-06-21] MEDS ORDERED: WATER ONE (01:32)
[2018-06-21] MEDS ORDERED: DEXTROSE 50% ONE (01:32)
[2018-06-21] MEDS ORDERED: Dextrose 50% in Water 50 ML Vial IV.PUSH ONE (01:45)
[2018-06-21] MEDS ORDERED: Vancomycin Inj 2,000 MG in Sodium Chlor 0.9% Inj 500 ML IV.SIG ONE (03:00)
[2018-06-21] MEDS ORDERED: Aztreonam Inj 2 GM in Sodium Chloride 0.9% Inj 100 ML IV.SIG SCH ×3 (03:00→06:00)
[2018-06-21 03:21] LABS: Hematocrit 17.1 % (35.0-46.0); Hemoglobin 5.6 gm/dL (11.6-15.3)
[2018-06-21] MEDS ORDERED: Chlorhexidine Gluconate 2% 1 Pack (2 Cloths) TOPICAL SCH (04:00)
[2018-06-21] MEDS ORDERED: Chlorhexidine Gluconate 2% 1 Pack (2 Cloths) TOPICAL PRN (04:00)
[2018-06-21 05:35] LABS: Creatine Kinase 1876 U/L (26-192)
[2018-06-21 05:39] LABS: Hemoglobin 9.2 gm/dL (11.6-15.3); Mean Corpuscular HGB Conc 31.9 % (32.0-36.0); Mean Corpuscular Hemoglobin 30.9 pg (27.0-34.0); Mean Corpuscular Volume 96.8 fL (80.0-100.0); Mean Platelet Volume 8.7 fL (7.0-11.0); Platelet Count 43 th/mm3 (150-450); Red Blood Count 2.99 mil/mm3 (4.00-5.30); Red Cell Distribution Width 17.5 % (11.6-17.2); White Blood Count 4.6 th/mm3 (4.0-11.0)
[2018-06-21] MEDS ORDERED: Sodium Bicarbonate 8.4% Inj 50 MEQ/50 ML Syringe ONE ×3 (05:52→06:01)
[2018-06-21 05:54] LABS: ABG Base Excess -23.2 mmol/L (-2-2); ABG PCO2 22 mmHg (38-42); ABG PO2 247 mmHg (61-120)
[2018-06-21 06:00] LABS: INR 4.5 Ratio; Prothrombin Time 44.8 sec (9.8-11.6)
[2018-06-21 06:02] LABS: Activated Partial Thrombo Time 180.9 sec (24.3-30.1)
[2018-06-21 06:04] LABS: Potassium 5.6 meq/L (3.5-5.1); Sodium 143 meq/L (136-145)
[2018-06-21 06:05] LABS: Anion Gap 25 meq/L (5-15); Aspartate Aminotransferase 3722 U/L (15-37); Blood Urea Nitrogen 29 mg/dL (7-18); Carbon Dioxide 7.5 meq/L (21.0-32.0); Chloride 111 meq/L (98-107); Glomerular Filtration Rate 26 mL/min (>89); Glucose,Random 202 mg/dL (74-106); Magnesium 1.5 mg/dL (1.5-2.5); Phosphorus 9.7 mg/dL (2.5-4.9)
[2018-06-21 06:06] LABS: Alanine Aminotransferase 694 U/L (10-53); Albumin 0.6 g/dL (3.4-5.0); Alkaline Phosphatase 31 U/L (45-117); Total Protein 1.4 g/dL (6.4-8.2)
[2018-06-21 06:07] LABS: CKMB Percent 2.3 % (0.0-4.0)
[2018-06-21 06:24] LABS: Lymphocytes 3 % (9-44); Metamyelocytes 4 % (0-1)
[2018-06-21 06:25] LABS: Dohle Bodies Present; Toxic Granulation 1+; Toxic Vacuolation Present
--- NOTE | 2018-06-21 06:25 | P.PNCC ---
Subjective Brief History: 82-year-old female presented to [facility] emergency room with mental status changes. In the process of workup she was found to have free air under the diaphragm and large amount of fluid consistent with a perforation. Patient has multiple comorbidities including hypocoagulable state with INR of 2.4 yesterday morning, liver failure with end-stage cirrhosis COPD coronary artery disease and hypertension. According to the son patient continues to drink alcohol heavily. Patient was taken to the operating room after initial resuscitation and underwent repair and Zeb patch of perforated pyloric channel ulcer. At the time of surgery patient was found to have hypoperfused purplish looking ischemic small intestine which was most likely at least partially due to the low flow state but also possibly due to the early thrombosis of the venous outflow Patient had wound VAC placed and was taken to the ICU Despite all the efforts patient continued to deteriorate over the next several hours, remains hemodynamically unstable despite vasopressors including vasopressin and Levophed. Patient developed metabolic acidosis prior to surgery and despite all the efforts of resuscitation pre-volume load and the administration of bicarb cannot get patient out of state of severe metabolic acidosis and acidemia due to low flow state. Lactic acid remains high over 14 Patient remains hypocoagulable and while on arrival her INR was 2.4 despite resuscitation INR this morning is 4.8 with PTT of 180 and platelet count of 48, 000 Therefore patient is now in irreversible acidosis disseminated intravascular coagulation/coagulopathy and sepsis with multiorgan failure. There is no chance of recovery at this time and mortality is 100% This situation is incompatible with life and I discussed this with her son with this time wishes to withdraw further care and allow mother to pass in peace and in his words "go to the father". Will follow patient's wishes and I discussed this with Dr. Parisi the attending physician. Objective Vital Signs / I&O: Vital Signs 06/20/18 18:34 06/20/18 19:00 06/20/18 19:20 Temperature 97.3 F L 97.3 F L Pulse Rate 95 H 100 H 92 H Respiratory Rate 24 24 26 H Blood Pressure 112/70 112/70 88/64 L Pulse Oximetry 96 96 90 L 06/20/18 19:30 06/20/18 19:45 06/20/18 20:00 Temperature Pulse Rate 92 H 100 H 89 Respiratory Rate 24 26 H 20 Blood Pressure 87/77 L 112/62 87/54 L Pulse Oximetry 90 L 92 L 96 06/20/18 20:45 06/20/18 21:00 06/20/18 21:25 Temperature Pulse Rate 91 H 92 H 89 Respiratory Rate 20 20 20 Blood Pressure 99/52 L 94/58 L 90/44 L Pulse Oximetry 96 06/21/18 00:02 06/21/18 00:49 06/21/18 03:09 Temperature Pulse Rate Respiratory Rate 20 16 Blood Pressure Pulse Oximetry 98 98 96 06/21/18 04:23 06/21/18 04:24 06/21/18 04:28 Temperature 93.6 F L 93.6 F L 93.7 F L Pulse Rate 82 89 87 Respiratory Rate 16 16 16 Blood Pressure 114/40 L 108/37 L 110/42 L Pulse Oximetry 06/21/18 04:36 06/21/18 05:23 06/21/18 05:27 Temperature 93.7 F L 94.3 F L 94.5 F L Pulse Rate 87 90 88 Respiratory Rate 16 16 16 Blood Pressure 105/44 L 101/43 L 105/41 L Pulse Oximetry 06/21/18 05:43 06/21/18 05:46 06/21/18 05:53 Temperature 94.5 F L 94.5 F L 94.5 F L Pulse Rate 87 87 84 Respiratory Rate 16 16 16 Blood Pressure 109/73 87/35 L 100/41 L Pulse Oximetry 06/21/18 06:09 06/21/18 06:10 Temperature 94.3 F L 94.6 F L Pulse Rate 83 83 Respiratory Rate 16 16 Blood Pressure 94/60 L 96/40 L Pulse Oximetry 94 L Intake & Output 06/20/18 06/20/18 06/21/18 06:59 18:59 06:59 Intake Total 4610 / 4610 Output Total 25 / 25 Balance 4585 / 4585 Weight 77.111 kg 70.8 kg Intake: IV 1520 / 1520 [id number] Syringe 100 ML @ 0 mls/hr 100 / 100 .ROUTE .STK-MED ONE Rx#: [id number] Maxipime Inj 2,000 MG In NS Inj 100 / 100 100 ML @ 200 mls/hr IV.SIG ONCE ONE Rx#:[id number] Diflucan 400 mg Premix Bag 200 200 / 200 ML @ 100 mls/hr IV.SIG Q24H ELISE Rx#:[id number] NS Inj 1,000 ML @ Wide Open IV. 1000 / 1000 SIG BOLUS ONE Rx#:[id number] Flagyl 500 MG Inj 100 ML @ 100 100 / 100 mls/hr IV.SIG ONCE ONE Rx#: [id number] Anesthesia Amount 1999 Intake (Blood Product) Amt 1090 / 1090 Plasma Thawed 5 Day Cp2d Unit 0 / 0 [id number] Plasma Thawed 5 Day Cp2d Unit 0 / 0 [id number] Plasma Thawed 5 Day Cp2d Unit 290 / 290 [id number] Plasma Thawed 5 Day Cp2d Unit 0 / 0 [id number] Rbc As-3 Leukoreduced Unit 0 / 0 [id number] Rbc As-3 Leukoreduced Unit 0 / 0 [id number] Rbc As-3 Leukoreduced Unit 400 / 400 [id number] Rbc As-3 Leukoreduced Unit 0 / 0 [id number] Rbc As-3 Leukoreduced Unit 400 / 400 [id number] Rbc As-3 Leukoreduced Unit 0 / 0 [id number] Output: Estimated Blood Loss 25 / 25 Other: Mode Setting Midline Abdomen Continuous Weight On Admission 70.8 kg Result Diagrams: 06/21/18 04:45 06/21/18 04:45 Imaging: Impressions Chest X-Ray 06/20/18 18:54 CONCLUSION: Marked free air in the abdomen. Discussed with Dr. Schumacher. Abdomen/Pelvis CT 06/20/18 19:25 CONCLUSION: 1. Prominent amount of free fluid throughout the abdomen. Prominent amount of free air in the nondependent portions of the upper to mid abdomen. Source of the free air and free fluid is not identified. 2. Diffusely nodular contour of the liver and small size of the liver indicating cirrhosis. 3. Calcified gallstones within collapsed gallbladder. 4. Osteoarthritic findings the right hip. Chest X-Ray 06/20/18 20:04 CONCLUSION: 1. Endotracheal tube and nasogastric tube in place. 2. Mild left lung base atelectasis. 3. Likely small left pleural effusion. Chest X-Ray 06/21/18 00:00 CONCLUSION: ET tube in good position. Stable left basilar atelectasis and small left pleural effusion.
[2018-06-21 06:26] LABS: Burr Cells 1+; Platelet Morphology Normal (Normal)
--- NOTE | 2018-06-21 06:34 | P.PNCC ---
Subjective Subjective Remarks/Hospital Course: 82-year-old female presented to emergency department at [facility] for an evaluation of altered mental status. The patient lives alone, does drink on a daily basis, last ate this morning. According to the son the patient was noted to have altered mental status and was complaining of abdominal pain. In the emergency department the patient was altered, oriented to name and location, but did not know the month or year. The CT of the abdomen revealed free air in abdominal cavity and patient was emergently taken to operating room. Perforated gastric ulcer was found and treated with a patch by Dr. Reyna. SUBJECTIVE: 06/21: Patient currently on multiple vasopressors with fulminant DIC. Surgery discussed with son Pernell/only son. 3 years ago. He wishes to withdraw care. Articles signed. Objective Vital Signs / I&O: Vital Signs 06/20/18 18:34 06/20/18 19:00 06/20/18 19:20 Temperature 97.3 F L 97.3 F L Pulse Rate 95 H 100 H 92 H Respiratory Rate 24 24 26 H Blood Pressure 112/70 112/70 88/64 L Pulse Oximetry 96 96 90 L 06/20/18 19:30 06/20/18 19:45 06/20/18 20:00 Temperature Pulse Rate 92 H 100 H 89 Respiratory Rate 24 26 H 20 Blood Pressure 87/77 L 112/62 87/54 L Pulse Oximetry 90 L 92 L 96 06/20/18 20:45 06/20/18 21:00 06/20/18 21:25 Temperature Pulse Rate 91 H 92 H 89 Respiratory Rate 20 20 20 Blood Pressure 99/52 L 94/58 L 90/44 L Pulse Oximetry 96 06/21/18 00:02 06/21/18 00:49 06/21/18 03:09 Temperature Pulse Rate Respiratory Rate 20 16 Blood Pressure Pulse Oximetry 98 98 96 06/21/18 04:23 06/21/18 04:24 06/21/18 04:28 Temperature 93.6 F L 93.6 F L 93.7 F L Pulse Rate 82 89 87 Respiratory Rate 16 16 16 Blood Pressure 114/40 L 108/37 L 110/42 L Pulse Oximetry 06/21/18 04:36 06/21/18 05:23 06/21/18 05:27 Temperature 93.7 F L 94.3 F L 94.5 F L Pulse Rate 87 90 88 Respiratory Rate 16 16 16 Blood Pressure 105/44 L 101/43 L 105/41 L Pulse Oximetry 06/21/18 05:43 06/21/18 05:46 06/21/18 05:53 Temperature 94.5 F L 94.5 F L 94.5 F L Pulse Rate 87 87 84 Respiratory Rate 16 16 16 Blood Pressure 109/73 87/35 L 100/41 L Pulse Oximetry 06/21/18 06:09 06/21/18 06:10 Temperature 94.3 F L 94.6 F L Pulse Rate 83 83 Respiratory Rate 16 16 Blood Pressure 94/60 L 96/40 L Pulse Oximetry 94 L Intake & Output 06/20/18 06/20/18 06/21/18 06:59 18:59 06:59 Intake Total 4610 / 4610 Output Total 25 / 25 Balance 4585 / 4585 Weight 77.111 kg 70.8 kg Intake: IV 1520 / 1520 D50W Syringe 100 ML @ 0 mls/hr 100 / 100 .ROUTE .STK-MED ONE Rx#: [id number] Maxipime Inj 2,000 MG In NS Inj 100 / 100 100 ML @ 200 mls/hr IV.SIG ONCE ONE Rx#:[id number] Diflucan 400 mg Premix Bag 200 200 / 200 ML @ 100 mls/hr IV.SIG Q24H ELISE Rx#:[id number] NS Inj 1,000 ML @ Wide Open IV. 1000 / 1000 SIG BOLUS ONE Rx#:[id number] Flagyl 500 MG Inj 100 ML @ 100 100 / 100 mls/hr IV.SIG ONCE ONE Rx#: [id number] Anesthesia Amount 1999 / 1999 Intake (Blood Product) Amt 1090 / 1090 Plasma Thawed 5 Day Cp2d Unit 0 / 0 [id number] Plasma Thawed 5 Day Cp2d Unit 0 / 0 [id number] Plasma Thawed 5 Day Cp2d Unit 290 / 290 [id number] Plasma Thawed 5 Day Cp2d Unit 0 / 0 [id number] Rbc As-3 Leukoreduced Unit 0 / 0 [id number] Rbc As-3 Leukoreduced Unit 0 / 0 [id number] Rbc As-3 Leukoreduced Unit 400 / 400 [id number] Rbc As-3 Leukoreduced Unit 0 / 0 [id number] Rbc As-3 Leukoreduced Unit 400 / 400 [id number] Rbc As-3 Leukoreduced Unit 0 / 0 [id number] Output: Estimated Blood Loss 25 / 25 Other: Mode Setting Midline Abdomen Continuous Weight On Admission 70.8 kg Result Diagrams: 06/21/18 04:45 06/21/18 04:45 Imaging: Chest X-Ray 06/20/18 18:54 CONCLUSION: Marked free air in the abdomen. Discussed with Dr. Schumacher. Abdomen/Pelvis CT 06/20/18 19:25 CONCLUSION: 1. Prominent amount of free fluid throughout the abdomen. Prominent amount of free air in the nondependent portions of the upper to mid abdomen. Source of the free air and free fluid is not identified. 2. Diffusely nodular contour of the liver and small size of the liver indicating cirrhosis. 3. Calcified gallstones within collapsed gallbladder. 4. Osteoarthritic findings the right hip. Chest X-Ray 06/20/18 20:04 CONCLUSION: 1. Endotracheal tube and nasogastric tube in place. 2. Mild left lung base atelectasis. 3. Likely small left pleural effusion. Chest X-Ray 06/21/18 00:00 CONCLUSION: ET tube in good position. Stable left basilar atelectasis and small left pleural effusion. Objective Remarks: GENERAL: 82-year-old male critically ill currently orotracheally intubated SKIN: Cool and dry. HEAD: Normocephalic. EYES: No scleral icterus. No injection or drainage. NECK: Supple, trachea midline. No JVD or lymphadenopathy. Right IJ is clean dry and intact CARDIOVASCULAR: Regular rate and rhythm without murmurs, gallops, or rubs. RESPIRATORY: Breath sounds equal bilaterally. Diminished breath sounds left lower lobe. GASTROINTESTINAL: Abdomen is large wound VAC/strenuous with large amount of output due to coagulopathy MUSCULOSKELETAL: Trace bilateral lower extremity edema edema. Neuro : Pupils 3 mm reactive to 2. Positive gag and cough. Withdraws to pain. Assessment and Plan - Assessment and Plan Plan: Respiratory failure -Intubated for an airway protection -No weaning until neurologically and hemodynamically improved -Vent bundle -DuoNeb scheduled and as needed Perforated gastric ulcer -Status post emergent surgery with patch repair -Azactam, vancomycin, Flagyl, Diflucan -Protonix IV twice daily -Follow-up blood cultures Metabolic lactic acidosis -Aggressive IV fluid resuscitation -Monitor trend Shock -Due to above -Levophed/vasopressin as needed to keep map above 65 -Aggressive IV fluid resuscitation Acute kidney injury -Strict I's and O's -IV fluid resuscitation -Monitor trend creatinine and electrolyte levels Coagulopathy -Underlying liver disease?? -Monitor for bleeding -Monitor frequent labs -FFP's if indicated DVT GI prophylaxis -Teds SCDs -Subcu heparin -Pepcid Son Pernell Alfaro notified. has been for 3 years. No other family. Wishes to withdraw care at the present time. Articles signed by myself and Dr. Berger for withdrawal. Articles signed. Critical Care: The total critical care time was 35 minutes. Time to perform other separately billable procedures was not included in the critical care time.
--- NOTE | 2018-06-21 07:49 | P.DN ---
Discharge Sum: Prov - Provider Primary care physician: Yaritza Hodge MD Admitting clinician: Neri Lau Attending physician on admission: Neri Lau Consults: 06/20/18 20:18 Consult to General Surgery Stat Consulting Provider: Warren Berger For STAT consult, spoke directly to:: Dr. Berger Preferred Circuits Engineer:: Warren Berger Reason for Consultation: Perforated viscus, please do not call, already been evaluated by the surgeon Notified:: Physician Spoke with:: Dr. Jorge Date Notified:: 06/20/18 Time Notified:: 20:40 Ordering Provider: HERMINIO 06/20/18 23:42 Consult to Palliative Care Routine Consulting Provider: Gil Beck Reason for Consultation: 82 year old with hx of ETOH now with perforated gastric ulcer and ischemic GI Notified:: Service Spoke with:: Pankaj Date Notified:: 06/21/18 Time Notified:: 00:04 Ordering Provider: CONNOR Pronouncing clinician: Tank Parisi Discharge Sum: Diag Discharge Sum: Summary - Date and Time Date of admission: 06/20/18 19:47 Date of : 06/21/18 Time of : 06:45 - Summary Details: This is an 82-year-old female. Admission date 06/20/2018. Patient was in the [facility] ED the past medical history of liver failure with end-stage cirrhosis COPD coronary artery disease and hypertension. According to the son patient continues to drink alcohol heavily. Patient was taken to the operating room after initial resuscitation and underwent repair and Zeb patch of perforated pyloric channel ulcer. At the time of surgery patient was found to have hypoperfused purplish looking ischemic small intestine which was most likely at least partially due to the low flow state but also possibly due to the early thrombosis of the venous outflow Patient had wound VAC placed and was taken to the ICU Despite all the efforts patient continued to deteriorate over the next several hours, remains hemodynamically unstable despite vasopressors including vasopressin and Levophed. - Additional Data Confirmation of as documented by pronouncing clinician: no pulse, no respirations, no heart sounds, pupils fixed and dilated Family: contacted Attending/PCP notified?: No Attending physician: Neri Lau MD Was code activated?: No Autopsy requested?: No range examiner notified?: Yes Organ bank notified?: Yes Advance directives: No Hospice patient?: No
[2018-06-21] MEDS ORDERED: Chlorhexidine 0.12% Oral Kit 15 ML UDC OROPHARYNG SCH (08:00)
--- NOTE | 2018-06-21 08:50 | ECG ---
Date Performed: 06/20/2018 Time Performed: 18:39:33 PTAGE: 82 years EKG: SINUS TACHYCARDIA NONSPECIFIC T-WAVE ABNORMALITY ABNORMAL RHYTHM ECG Since the PREVIOUS TRACING , no significant change noted PREVIOUS TRACIN03/04/2002 11.05 DOCTOR: Patsy Riley Interpretating Date/Time 06/21/2018 08:49:15
[2018-06-21] MEDS ORDERED: Senna/Docusate Sodium 8.6/50 MG Tablet PO SCH (09:00)
[2018-06-22] MEDS ORDERED: Heparin - SQ 10,000 UNITS/ML Vial SQ SCH
[2018-06-22] MEDS ORDERED: fentaNYL 10 mcg/mL Premix Drip 2,500 MCG/250 ML BAG IV.SIG PRN
[2018-06-22] MEDS ORDERED: Sodium Bicarbonate 8.4% Inj 150 MEQ in Dextrose 5% in Water Inj 850 ML IV.CONT SCH ×2 (00:30)
== END 2018-06-21 08:30 | disposition expired ==
LOC: PHED 18:32 → PHEDA 19:47 → N03 21:55
PROVIDERS: ADMIT Internal Medicine Critical Care Medicine; ATTEND Internal Medicine Critical Care Medicine